=== PATIENT | female | born 1950 | race Caucasian/White ===

== ENCOUNTER 2020-11-19 07:26 | Day surgery (SDC) | payer MEDICARE ==
[~2020-11-19] VITALS: Ht 149.9 cm; Wt 49.0 kg
--- NOTE | 2020-11-19 08:07 | NUR ---
Ambulatory in Day Surgery History, Chart, Medications and Allergies reviewed before start of procedure. Pre-Op teaching done. Pt verbalizes understanding. Lungs clear. 02 3L/NC placed due to SOB.
--- NOTE | 2020-11-19 08:51 | NUR ---
11/19/20 0851 Yomaira Churchill 2% LIDOCAINE JELLY WITH 5 DROPS GABBIE-SYNEPHRINE 0.5% APPLIED TO BILATERAL NARES WITH COTTON TIP APPLICATOR. 1% LIDOCAINE SOLUTION SPRAYED TO OROPHARYNX USING ATOMIZATION DEVICE UNTIL GAG REFLEX GONE.
--- NOTE | 2020-11-19 11:18 | NUR ---
1101 RECEIVED CALL FROM RADIOLOGY, KOD[place] THAT DR MORGAN CONFIRMED CXR AND NO PNEUMOTHORAX NOTED. 1109 AMBULATED TO BATHROOM ON ROOM AIR. INCREASE SOB NOTED. RETURN TO BED AFTER RESTROOM, 02 REAPPLIED AND RECOVERS WELL.
--- NOTE | 2020-11-19 11:35 | NUR ---
PATIENT IS STABLE FOR DISCHARGE. PATIENT ARRIVED TODAY WITHOUT HER PORTABLE OXYGEN TANK. WILL DISCHARGE WITH O2 3L/NC UNTIL RIDE ARRIVES. [facility] WAS NOTIFIED FOR PICKUP.
--- NOTE | 2020-11-19 11:36 | NUR ---
Patient up to Ambulate independently. Gait steady. Discharge instructions reviewed with patient. Patient verbalizes understanding. Copy given to patient to take home. Discharged via wheelchair to private car for ride home.
[2020-12-23] MEDS ORDERED: ALBU90OI INH (15:36)
[2020-12-23] MEDS ORDERED: TRAM50 PO (15:38)
[2020-12-23] MEDS ORDERED: Bupropion HCl100 MG PO (15:38)
[2020-12-23] MEDS ORDERED: ANORO ELLIPTA1 EACH INH (15:39)
[2020-12-23] MEDS ORDERED: OXCA150 PO (15:39)
[2020-12-23] MEDS ORDERED: DUO-NEB NEB (15:40)
[2020-12-23] MEDS ORDERED: BREO ELLIPTA 21 EAC1 INH (15:41)
[2020-12-23] MEDS ORDERED: QUET200 PO (15:41)
[2020-12-23] MEDS ORDERED: LOTREL 10-40 M1 EACH PO (15:42)
== END 2020-11-19 11:44 | disposition home or self-care (01) ==
LOC: ORSCMMR 07:26 → ORD 08:30 → ORSCMMR 08:30
PROVIDERS: Internal Medicine Pulmonary Disease
PROC: 0BB48ZX Excision of Right Upper Lobe Bronchus, Via Natural or Artificial Opening Endoscopic, Diagnostic (ICD-10-PCS; principal; 2020-11-19 08:30)
DX: C34.11 Malignant neoplasm of upper lobe, right bronchus or lung (principal); Z87.891 Personal history of nicotine dependence; F31.9 Bipolar disorder, unspecified; R09.02 Hypoxemia; Z99.81 Dependence on supplemental oxygen; Z79.899 Other long term (current) drug therapy
CPT/HCPCS: 71045; 87070; 87077; 87186; 87205; 88305; A9270; J0171; J2001; J2250; J3010; J7120

== ENCOUNTER 2020-12-28 09:18 | Day surgery (SDC) | payer MEDICARE ==
[~2020-12-28] VITALS: Ht 149.9 cm; Wt 49.4 kg
[~2020-12-28 09:18] MED LIST: ALBU90OI INH; ANORO ELLIPTA1 EACH INH; BREO ELLIPTA 21 EAC1 INH; Bupropion HCl100 MG PO; DUO-NEB NEB; LOTREL 10-40 M1 EACH PO; OXCA150 PO; QUET200 PO; TRAM50 PO
--- NOTE | 2020-12-28 10:26 | NUR ---
Patient up to Ambulate independently. Gait steady. Surgical site prepped with 2% Chlorhexidine cloth wipe. Lungs clear T/O to Auscultation. Patient confirms NPO status and agrees with scheduled surgery. Pre-Op teaching done. Pt verbalizes understanding. Justo Paws warming gown applied. Patient States Post-Procedure ride home has been arranged.
--- NOTE | 2020-12-28 12:19 | NUR ---
ASSUMED CARE PT IS VISITING WITH STAFF DENIES PAIN OR NAUSEA . LAKISHA MALIN
--- NOTE | 2020-12-28 12:37 | NUR ---
REPORT TO SANTI CAN RATES PAIN 3/10 PLEASANT EATING CRACKERS AND DRINKING JUICE
--- NOTE | 2020-12-28 13:20 | NUR ---
PT TO STEP DOWN, UP TO VOID, STEADY ON FEET, GETS SOB EASILY WITH EXERTION. DRESSED W/ MIN ASSISTANCE AFTER BATHROOM. PT LAYING BACK DOWN, Discharge instructions reviewed with patient. Patient verbalizes understanding. Copy given to patient to take home. PT STATES MEDIPORT SITE BECOMING MORE TENDER, REQUESTING PAIN PILL. 1320- REPORT GIVEN TO JUAN JOSÉ JAUREGUI.
== END 2020-12-28 13:35 | disposition home or self-care (01) ==
LOC: ORSCMMR 09:18 → ORD 10:30 → ORSCMMR 10:30
PROVIDERS: Surgery
PROC: B544ZZA Ultrasonography of Left Jugular Veins, Guidance (ICD-10-PCS; principal; 2020-12-28 09:30)
PROC: 05HN33Z Insertion of Infusion Device into Left Internal Jugular Vein, Percutaneous Approach (ICD-10-PCS; principal; 2020-12-28 09:30)
DX: C34.11 Malignant neoplasm of upper lobe, right bronchus or lung (principal); I10 Essential (primary) hypertension; J44.9 Chronic obstructive pulmonary disease, unspecified; F17.210 Nicotine dependence, cigarettes, uncomplicated; Z79.899 Other long term (current) drug therapy
CPT/HCPCS: 77001; A9270; C1788; J1100; J1642; J2250; J2405; J2704; J3010; J7120

== ENCOUNTER 2021-02-04 10:08 | Emergency (ER) | payer MEDICARE ==
[~2021-02-04] VITALS: Ht 149.9 cm; Wt 46.7 kg
[2021-02-04 11:19] LABS: BASOPHILS ABSOLUTE AUTO 0.06 K/mm3 (0.00-0.23); BASOPHILS PERCENT AUTO 1 % (0-2); Hemoglobin 8.5 g/dL (11.5-16.0); LYMPHOCYTES ABSOLUTE AUTO 0.66 K/mm3 (0.84-5.20); LYMPHOCYTES PERCENT AUTO 8 % (21-46); MONOCYTES ABSOLUTE AUTO 0.71 K/mm3 (0.16-1.47); MONOCYTES PERCENT AUTO 8 % (4-13); Mean Corpuscular HGB 30.2 pg (26.0-34.0); Mean Corpuscular Volume 89 fL (80-100); Mean Platelet Volume 9.4 fL (9.1-12.4); Platelet Count 67 K/mm3 (150-400); RDW Coefficient Variation 18.3 % (11.7-14.2); RDW Standard Deviation 52.9 fL (35.1-46.3); Red Blood Cell Count 2.81 M/mm3 (3.80-5.20); White Blood Cell Count 8.41 K/mm3 (4.00-11.30)
[2021-02-04 11:22] LABS: EOSINOPHILS PERCENT AUTO 0 % (0-6); IMMATURE GRAN ABSOLUTE AUTO 0.41 K/mm3 (0.00-0.10); IMMATURE GRAN PERCENT AUTO 5 % (0-1); NEUTROPHILS ABSOLUTE AUTO 6.57 K/mm3 (1.96-9.15); NEUTROPHILS PERCENT AUTO 78 % (41-73)
[2021-02-04 11:32] LABS: Alanine Aminotransfer (ALT/SGP 12 U/L (12-78); Albumin, Blood 3.8 g/dL (3.4-5.0); Albumin/Globulin Ratio 1.2 (0.8-1.8); Alk Phos 118 U/L (50-136); Anion Gap 7 mmol/L (6-16); Aspartate Aminotrans (AST/SGOT 9 U/L (12-37); Bilirubin, Total 0.2 mg/dL (0.1-1.0); Blood Urea Nitrogen 12 mg/dL (8-24); Bun/Creatinine Ratio 14.4 (12.0-20.0); CO2, Blood 25 mmol/L (21-32); Calcium, Blood 8.6 mg/dL (8.5-10.1); Chloride, Blood 105 mmol/L (98-108); Creatinine, Blood 0.83 mg/dL (0.40-1.00); Globulin, Blood 3.2 g/dL (2.2-4.0); Glomerular Filtration Rate >60 (60-); Glucose, Blood 103 mg/dL (70-99); Potassium, Blood 3.1 mmol/L (3.5-5.5); Sodium, Blood 137 mmol/L (136-145)
[2021-02-04] MEDS ORDERED: Bactrim Ds Tab1 EACH PO (12:30)
== END 2021-02-04 13:06 | disposition home or self-care (01) ==
LOC: ER 10:08
PROVIDERS: Physician Assistant
DX: L52 Erythema nodosum (principal); Z79.899 Other long term (current) drug therapy; Z87.891 Personal history of nicotine dependence; Z88.0 Allergy status to penicillin
CPT/HCPCS: 36415; 80053; 85025; 99283; A9270

== ENCOUNTER 2021-04-18 21:58 | Emergency (ER) | payer MEDICARE ==
[~2021-04-18] VITALS: Ht 149.9 cm; Wt 45.4 kg
[~2021-04-18 21:58] MED LIST changes: +Bactrim Ds Tab1 EACH PO
[2021-04-18 23:36] LABS: BASOPHILS ABSOLUTE AUTO 0.01 K/mm3 (0.00-0.23); BASOPHILS PERCENT AUTO 0 % (0-2); EOSINOPHILS PERCENT AUTO 0 % (0-6); Hematocrit 31.2 % (33.0-51.0); Hemoglobin 10.9 g/dL (11.5-16.0); IMMATURE GRAN ABSOLUTE AUTO 0.01 K/mm3 (0.00-0.10); IMMATURE GRAN PERCENT AUTO 0 % (0-1); LYMPHOCYTES PERCENT AUTO 22 % (21-46); MONOCYTES ABSOLUTE AUTO 0.32 K/mm3 (0.16-1.47); MONOCYTES PERCENT AUTO 9 % (4-13); Mean Corpuscular HGB 32.3 pg (26.0-34.0); Mean Corpuscular HGB Conc 34.9 g/dL (31.5-36.5); Mean Corpuscular Volume 93 fL (80-100); Mean Platelet Volume 8.4 fL (9.1-12.4); NEUTROPHILS ABSOLUTE AUTO 2.49 K/mm3 (1.96-9.15); NEUTROPHILS PERCENT AUTO 69 % (41-73); Platelet Count 84 K/mm3 (150-400); RDW Coefficient Variation 12.7 % (11.7-14.2); Red Blood Cell Count 3.37 M/mm3 (3.80-5.20); White Blood Cell Count 3.63 K/mm3 (4.00-11.30)
[2021-04-18 23:49] LABS: Anion Gap 9 mmol/L (6-16); Blood Urea Nitrogen 21 mg/dL (8-24); Bun/Creatinine Ratio 27.5 (12.0-20.0); CO2, Blood 20 mmol/L (21-32); Calcium, Blood 9.1 mg/dL (8.5-10.1); Chloride, Blood 100 mmol/L (98-108); Creatinine, Blood 0.77 mg/dL (0.40-1.00); Glomerular Filtration Rate >60 (60-); Glucose, Blood 173 mg/dL (70-99); Potassium, Blood 3.9 mmol/L (3.5-5.5); Sodium, Blood 129 mmol/L (136-145); Troponin I <0.015 ng/mL (0.000-0.040)
[2021-04-19] MEDS ORDERED: Prednisone50 MG PO (06:03)
[2021-04-19] MEDS ORDERED: ALBU2.5V5 INH (06:03)
== END 2021-04-19 07:49 | disposition home or self-care (01) ==
LOC: ER 21:58
PROVIDERS: Student in an Organized Health Care Education/Training Program
DX: J44.1 Chronic obstructive pulmonary disease with (acute) exacerbation (principal); I10 Essential (primary) hypertension; Z87.891 Personal history of nicotine dependence; Z85.118 Personal history of other malignant neoplasm of bronchus and lung; Z99.81 Dependence on supplemental oxygen; Z88.0 Allergy status to penicillin; Z79.899 Other long term (current) drug therapy
CPT/HCPCS: 36415; 71045; 71260; 80048; 84484; 85025; 93005; 93010; 99285-25; J7030; Q9967

== ENCOUNTER → 2021-06-08 | Outpatient (CLI) | payer MEDICARE ==
[~2021-06-08] MED LIST changes: +ALBU2.5V5 INH; +Prednisone50 MG PO
== END | disposition home or self-care (01) ==
LOC: LAB SHORT 15:14
DX: L08.9 Local infection of the skin and subcutaneous tissue, unspecified (principal); L98.9 Disorder of the skin and subcutaneous tissue, unspecified
CPT/HCPCS: 88305; 88312

== ENCOUNTER → 2021-06-22 | Outpatient (CLI) | payer MEDICARE ==
[2021-06-23 09:59] LABS: C DIFFICILE DNA NEGATIVE (Negative)
== END | disposition home or self-care (01) ==
LOC: LAB SHORT 12:05
PROVIDERS: Internal Medicine Hematology & Oncology
DX: C34.90 Malignant neoplasm of unspecified part of unspecified bronchus or lung (principal); R19.7 Diarrhea, unspecified
CPT/HCPCS: 87493

== ENCOUNTER 2021-07-14 10:48 | Emergency (ER) | payer MEDICARE ==
[~2021-07-14] VITALS: Ht 149.9 cm; Wt 42.2 kg
[2021-07-14 11:53] LABS: Hematocrit 29.2 % (33.0-51.0); Hemoglobin 9.7 g/dL (11.5-16.0); Mean Corpuscular HGB 31.5 pg (26.0-34.0); Mean Corpuscular HGB Conc 33.2 g/dL (31.5-36.5); Mean Corpuscular Volume 95 fL (80-100); Mean Platelet Volume 9.2 fL (9.1-12.4); Platelet Count 140 K/mm3 (150-400); RDW Coefficient Variation 16.1 % (11.7-14.2); RDW Standard Deviation 56.3 fL (35.1-46.3); Red Blood Cell Count 3.08 M/mm3 (3.80-5.20); White Blood Cell Count 5.08 K/mm3 (4.00-11.30)
[2021-07-14 12:13] LABS: Alanine Aminotransfer (ALT/SGP 8 U/L (12-78); Albumin, Blood 1.5 g/dL (3.4-5.0); Albumin/Globulin Ratio 0.5 (0.8-1.8); Alk Phos 50 U/L (50-136); Anion Gap 7 mmol/L (6-16); Aspartate Aminotrans (AST/SGOT 14 U/L (12-37); Bilirubin, Total 0.3 mg/dL (0.1-1.0); Blood Urea Nitrogen 35 mg/dL (8-24); Bun/Creatinine Ratio 43.1 (12.0-20.0); CO2, Blood 21 mmol/L (21-32); Calcium, Blood 7.9 mg/dL (8.5-10.1); Chloride, Blood 106 mmol/L (98-108); Creatinine, Blood 0.81 mg/dL (0.40-1.00); Globulin, Blood 3.1 g/dL (2.2-4.0); Glomerular Filtration Rate >60 (60-); Glucose, Blood 106 mg/dL (70-99); Potassium, Blood 3.6 mmol/L (3.5-5.5); Sodium, Blood 134 mmol/L (136-145); Total Protein, Blood 4.6 g/dL (6.4-8.2); Troponin I <0.015 ng/mL (0.000-0.040)
[2021-07-14 12:17] LABS: BAND PERCENT MAN 50 % (0-8); BASOPHILS PERCENT MAN 0 % (0-2); EOSINOPHILS PERCENT MAN 0 % (0-6); LYMPHOCYTES PERCENT MAN 8 % (21-46); METAMYELOCYTE ABSOLUTE MAN 0.05 K/mm3 (0.00-0.00); METAMYELOCYTE PERCENT MAN 1 % (0-0); MONOCYTES PERCENT MAN 10 % (4-13); NEUTROPHILS ABSOLUTE MAN 4.11 K/mm3 (1.96-9.15); SEG NEUTROPHILS PERCENT MAN 31 % (41-73); TOTAL CELLS COUNTED 100
[2021-07-14 16:05] LABS: Source, Urine Clean Catch
[2021-07-14 16:08] LABS: Appearance, Urine Clear (Clear); Bilirubin, Urine Neg (Neg); Blood, Urine Neg (Neg); Color, Urine Yellow (P-Yellow); Glucose Qualitative, Urine Neg (Neg); Ketones, Urine 1+ (Neg); Leukocyte Esterase, Urine Neg (Neg); Nitrite, Urine Neg (Neg); Protein, Urine 2+ (Neg); Specific Gravity, Urine 1.015 (1.003-1.022); Urobilinogen, Urine NORM (Normal)
[2021-07-14 16:38] LABS: Bacteria Mod /hpf; Red Blood Cells, Urine Rare /hpf (0-2); Squamous Epithelial Cells Rare /hpf (Few); White Blood Cells, Urine Rare /hpf (0-5)
[2021-07-14] MEDS ORDERED: ONDA4ODT MM (16:41)
[2021-07-14] MEDS ORDERED: Loperamide2 MG PO (16:41)
== END 2021-07-14 17:33 | disposition home or self-care (01) ==
LOC: ER 10:48
PROVIDERS: Emergency Medicine
DX: K52.9 Noninfective gastroenteritis and colitis, unspecified (principal); E86.0 Dehydration; I95.9 Hypotension, unspecified; J44.9 Chronic obstructive pulmonary disease, unspecified; I10 Essential (primary) hypertension; Z87.891 Personal history of nicotine dependence; Z88.0 Allergy status to penicillin; Z79.899 Other long term (current) drug therapy
CPT/HCPCS: 51701; 71045; 71260; 74177; 80053; 81001; 83690; 84484; 85025; 87086; 93005; 93010; 96374; 96375; 99285-25; A9270; J2405; J3010; J7030; Q9967

== ENCOUNTER 2021-07-16 11:42 | Inpatient (IN) | payer MEDICARE ==
[~2021-07-16] VITALS: Ht 144.8 cm; Wt 63.2 kg
[~2021-07-16 11:42] MED LIST changes: -DUO-NEB NEB; +IPRAT-ALBUT 0.5-3 ML INH; +Loperamide2 MG PO; +ONDA4ODT MM; -QUET200 PO; +QUET300 PO
[2021-07-16 13:13] LABS: Influenza A, PCR NEGATIVE (NEGATIVE); Influenza B, PCR NEGATIVE (NEGATIVE); Resp Syncytial Virus, PCR NEGATIVE (NEGATIVE); SARS-Cov-2 (COVID-19) PCR, MMC NEGATIVE (NEGATIVE)
[2021-07-16 13:30] LABS: Hematocrit 24.9 % (33.0-51.0); Hemoglobin 8.2 g/dL (11.5-16.0); Mean Corpuscular HGB 31.7 pg (26.0-34.0); Mean Corpuscular HGB Conc 32.9 g/dL (31.5-36.5); Mean Corpuscular Volume 96 fL (80-100); Mean Platelet Volume 9.3 fL (9.1-12.4); Platelet Count 113 K/mm3 (150-400); RDW Standard Deviation 56.6 fL (35.1-46.3); Red Blood Cell Count 2.59 M/mm3 (3.80-5.20); White Blood Cell Count 4.41 K/mm3 (4.00-11.30)
[2021-07-16 13:53] LABS: Troponin I <0.015 ng/mL (0.000-0.040)
[2021-07-16 13:55] LABS: BAND PERCENT MAN 21 % (0-8); BASOPHILS PERCENT MAN 0 % (0-2); EOSINOPHILS ABSOLUTE MAN 0.04 K/mm3 (0.00-0.68); EOSINOPHILS PERCENT MAN 1 % (0-6); METAMYELOCYTE ABSOLUTE MAN 0.04 K/mm3 (0.00-0.00); METAMYELOCYTE PERCENT MAN 1 % (0-0); MONOCYTES ABSOLUTE MAN 0.13 K/mm3 (0.16-1.47); MONOCYTES PERCENT MAN 3 % (4-13); NEUTROPHILS ABSOLUTE MAN 4.18 K/mm3 (1.96-9.15); SEG NEUTROPHILS PERCENT MAN 74 % (41-73); TOTAL CELLS COUNTED 100
[2021-07-16 13:57] LABS: Alanine Aminotransfer (ALT/SGP 8 U/L (12-78); Albumin, Blood 1.2 g/dL (3.4-5.0); Albumin/Globulin Ratio 0.4 (0.8-1.8); Alk Phos 48 U/L (50-136); Anion Gap 9 mmol/L (6-16); Aspartate Aminotrans (AST/SGOT 10 U/L (12-37); Bilirubin, Total 0.2 mg/dL (0.1-1.0); Blood Urea Nitrogen 41 mg/dL (8-24); Bun/Creatinine Ratio 31.1 (12.0-20.0); CO2, Blood 19 mmol/L (21-32); Chloride, Blood 109 mmol/L (98-108); Creatinine, Blood 1.32 mg/dL (0.40-1.00); Globulin, Blood 2.8 g/dL (2.2-4.0); Glomerular Filtration Rate 40 (60-); Glucose, Blood 111 mg/dL (70-99); Potassium, Blood 2.4 mmol/L (3.5-5.5); Sodium, Blood 137 mmol/L (136-145)
[2021-07-16 14:05] LABS: Source, Urine Clean Catch
[2021-07-16 14:09] LABS: Appearance, Urine Clear (Clear); Blood, Urine Neg (Neg); Color, Urine Yellow (P-Yellow); Glucose Qualitative, Urine Neg (Neg); Ketones, Urine Neg (Neg); Leukocyte Esterase, Urine 1+ (Neg); Nitrite, Urine Neg (Neg); Protein, Urine 2+ (Neg); Specific Gravity, Urine 1.015 (1.003-1.022); Urobilinogen, Urine NORM (Normal)
[2021-07-16 14:18] LABS: Bilirubin, Urine 1+ (Neg)
[2021-07-16 14:21] LABS: Bacteria Many /hpf; Red Blood Cells, Urine 0-2 /hpf (0-2); Squamous Epithelial Cells Few /hpf (Few)
[2021-07-16 14:26] LABS: C DIFFICILE DNA NEGATIVE (Negative)
--- NOTE | 2021-07-16 21:34 | NUR ---
ASSUMED CARE AT 1900 PT ARRIVED TO ICU 6 AT 1845 AND THIS RN ASSUMED CARE AT 1900. PT IS A&O X4 AND ABLE TO MAKE HER NEEDS KNOWN; PT IS VERY WEAK AND LETHARGIC BUT CAN HOLD A CONVERSATION. C/O PAIN IN ABD, PAIN IS SHARP AND "COMES AND GOES" AND OCCATIONALLY "STICKS AROUND"; PAIN RATING 5/10; PRN FENTANYL AVAILABLE, GIVEN, AND HELPFUL; PAIN NOW 3/10. SPO2 >96% ON RA; WEAK PRODUCTIVE COUGH NOTED. HR 80-90'S. SBP 90'S; LEVOPHED TITRATED UP TO 14MCG/MIN; MAP >65. HYPOACTIVE BT; ABD TENDER TO TOUCH; NO BM SINCE ADMIT TO ICU. SOME URINARY RETENTION NOTED, ABLE TO USE BEDPAN. SEE ADMISSION ASSESSMENT FOR FULL ASSESSMENT. DR FLEMING CALLED REGARDING CLARIFICATION ON FLUID ORDER, 1000ML BAG OF NS AT 100ML/HR D/C'D DUE TO SECOND ORDER OF 1000ML BAG OF NS WITH 20MEQ OF POTASSIUM ALSO INFUSING AT 100ML/HR. PT REQUESTED THAT AN ALBUTEROL INHALER BE AVAILABLE, DR FLEMING PROVIDED ORDERS FOR PRN ALBUTEROL.
--- NOTE | 2021-07-16 21:57 | NUR ---
UPDATE PT POTASSIUM LAB RESULTED AT 2.[address] FLEMING CALLED AND PROVIDED ORDERS TO ADD ON A MAG AND CREATININE LAB TO THE 2034 LAB DRAW AND CALL WITH THE RESULTS; TO GIVE 60MEQ KCL IV AND 40MEQ OF KCL PO; A POTASSIUM LAB IS TO BE DRAWN AFTER INFUSION.
[2021-07-16 22:05] LABS: Creatinine, Blood 0.56 mg/dL (0.40-1.00); Magnesium, Blood 1.2 mg/dL (1.6-2.4)
--- NOTE | 2021-07-16 22:44 | NUR ---
UPDATE CALLED DR FLEMING BACK REGARDING MAG AND CREATININE LAB LEVELS. NEW ORDERS PROVIDED TO GIVE 2 GRAMS OF MAGNISIUM SULFATE AND AN ADDITIONAL 40MEQ OF KCL PO.
--- NOTE | 2021-07-17 03:26 | NUR ---
UPDATE AT 0200 PT C/O 03/26 PAIN THAT WAS NOT RELIEVED BY 25MCG PRN FENTANYL, PAIN CONT IN ABD TO BE SHARP AND "COMES AND GOES" BUT WILL OCCATIONALLY "HOLD ON". PT IS NOW GUARDING ABD TOO. DR YANEZ NOTIFIED AND PROVIDED NEW ORDERS FOR 1-2MG DILAUDID PRN Q6HR.
[2021-07-17 05:43] LABS: Hematocrit 31.5 % (33.0-51.0); Hemoglobin 10.5 g/dL (11.5-16.0); Mean Corpuscular HGB 31.5 pg (26.0-34.0); Mean Corpuscular HGB Conc 33.3 g/dL (31.5-36.5); Mean Corpuscular Volume 95 fL (80-100); Mean Platelet Volume 8.9 fL (9.1-12.4); Platelet Count 162 K/mm3 (150-400); Red Blood Cell Count 3.33 M/mm3 (3.80-5.20)
[2021-07-17 06:18] LABS: Anion Gap 6 mmol/L (6-16); Blood Urea Nitrogen 24 mg/dL (8-24); Bun/Creatinine Ratio 37.8 (12.0-20.0); CO2, Blood 15 mmol/L (21-32); Calcium, Blood 7.6 mg/dL (8.5-10.1); Chloride, Blood 116 mmol/L (98-108); Creatinine, Blood 0.64 mg/dL (0.40-1.00); Glomerular Filtration Rate >60 (60-); Glucose, Blood 124 mg/dL (70-99); Sodium, Blood 137 mmol/L (136-145)
[2021-07-17 06:22] LABS: Potassium, Blood 4.6 mmol/L (3.5-5.5)
[2021-07-17 06:26] LABS: BAND PERCENT MAN 14 % (0-8); BASOPHILS PERCENT MAN 0 % (0-2); EOSINOPHILS PERCENT MAN 0 % (0-6); LYMPHOCYTES ABSOLUTE MAN 0.31 K/mm3 (0.84-5.20); LYMPHOCYTES PERCENT MAN 3 % (21-46); MONOCYTES PERCENT MAN 0 % (4-13); NEUTROPHILS ABSOLUTE MAN 10.18 K/mm3 (1.96-9.15); SEG NEUTROPHILS PERCENT MAN 83 % (41-73); TOTAL CELLS COUNTED 100
--- NOTE | 2021-07-17 06:32 | NUR ---
END OF SHIFT SUMMARY PT DID NOT SLEEP ALL SHIFT. PT IS A&O X4 BUT WEAK AND LETHARGIC. SPO2 >94% ON RA, PRN ALBUTERAL HELPFUL AFTER EXERTION. HR 80-90'S. SBP 90-110; LEVOPHED INFUSING AT 16MCG/MIN. ABD MORE FIRM THAN PREVIOUSLY; ZOFRAN GIVEN X2; DIARRHEA STARTED AGAIN; DILAUDID GIVEN X1 AND HELPFUL WITH ABD PAIN. PT VOIDING Q2HR BOTH LIQUID STOOL AND URINE. WILL REPORT TO AM RN WHEN AVAILABLE.
--- NOTE | 2021-07-17 11:33 | NUR ---
Met with pt to review her needs and symptoms. Pt is very depressed and states she is having anger. She is sad that she was so dilligent with her care and her immunosupressive therapy in not tolerable. She is having more pressure and bloating in abdomen. She denies headaches or blurred vision. No appetite, increased weakness and a fall. we discussed a plan of contacting her oncologist tomorrow for support in making a plan and decision making. She did not want to talk about hospice at first but was able to have a gentle and careful introduction to how much support they would give her. Advised her that she can talk to them and make a decision after. I also advied her that if she signs up for hospice and it is not working for her she can cancel the service. Renforced she has some choice. She is feeling out of control. She is no children. She moved up here to be with friends. She is having anticipatory grief and she is very fatigued. Review of symptoms and suggested medication with hospitalist. Will get chaplian for pt.
--- NOTE | 2021-07-17 19:14 | NUR ---
Ms. Benitez is resting in bed. She is alert and oriented, though complains of abdominal pain, diarrhea, and nausea. Ms. Benitez is on room air and is satting 96%. She has a strong, congested sounding cough. IV antibiotics have been administered as prescribed. Ms. Benitez has a poor appetite, eating small portions. She has had persistent diarrhea throughout the day and has been prescribed imodium and simethicone for abdominal symptom relief. Dilaudid and fentanyl have also been administered for pain management. Chest port and peripheral IV access lines are intact. Levophed drip has been titrated down to 6mcgs. NS with 20KCL are still infusing at 100ccs/hour
--- NOTE | 2021-07-17 21:49 | NUR ---
ASSUMED CARE AT 1900 PT LAYING IN BED WHEN ARRIVED ONTO SHIFT. PT IS A/O X4 AND ABLE TO MAKE HER NEEDS KNOWN BUT IS VERY WEAK, LETHARGIC, AND FRAGILE.SPO2 >90% ON RA; RT PROVIDED TREATMENT FOR WHEEZINESS. HR 100'S. SBP 100'S; LEVOPHED INFUSING AT 6MCG/MIN. ABD FIRM AND PAINFUL TO TOUCH; C/O NAUSEA; LIQUID STOOL FREQUENTLY Q1HR; PRN DILAUDID GIVEN FOR PAIN; WILL PROVIDE OTHER PRN'S AVAILABLE FOR NAUSEA, GAS, AND DIARRHEA. PT APPEARS EXHAUSTED, MORE SCARED AND ANXIOUS THAN PREVIOUS DAY MAKING STATEMENTS THAT SHE "DOESN'T WANT TO " FOLLOWED BY A CONVERSTAION ABOUT HOW SHE NEEDS TO UPDATE HER WILL. NS WITH 20MEQ KCL INFUSING AT 100ML/HR. SEE SHIFT ASSESSMENT FOR FULL ASSESSMENT.
[2021-07-18 05:09] LABS: Hematocrit 30.3 % (33.0-51.0); Mean Corpuscular HGB 31.3 pg (26.0-34.0); Mean Corpuscular Volume 95 fL (80-100); Mean Platelet Volume 8.8 fL (9.1-12.4); Platelet Count 155 K/mm3 (150-400); RDW Coefficient Variation 16.1 % (11.7-14.2); RDW Standard Deviation 56.5 fL (35.1-46.3); Red Blood Cell Count 3.19 M/mm3 (3.80-5.20); White Blood Cell Count 10.16 K/mm3 (4.00-11.30)
[2021-07-18 05:41] LABS: Albumin, Blood 1.5 g/dL (3.4-5.0); Anion Gap 5 mmol/L (6-16); Blood Urea Nitrogen 14 mg/dL (8-24); Bun/Creatinine Ratio 24.3 (12.0-20.0); CO2, Blood 17 mmol/L (21-32); Calcium, Blood 8.1 mg/dL (8.5-10.1); Chloride, Blood 117 mmol/L (98-108); Creatinine, Blood 0.58 mg/dL (0.40-1.00); Glomerular Filtration Rate >60 (60-); Glucose, Blood 113 mg/dL (70-99); Phosphorus, Blood 1.5 mg/dL (2.5-4.9); Potassium, Blood 3.5 mmol/L (3.5-5.5); Sodium, Blood 139 mmol/L (136-145)
[2021-07-18 06:14] LABS: BAND PERCENT MAN 35 % (0-8); BASOPHILS PERCENT MAN 0 % (0-2); EOSINOPHILS PERCENT MAN 0 % (0-6); LYMPHOCYTES PERCENT MAN 2 % (21-46); MONOCYTES ABSOLUTE MAN 0.71 K/mm3 (0.16-1.47); MONOCYTES PERCENT MAN 7 % (4-13); MYELOCYTE PERCENT MAN 5 % (0-0); NEUTROPHILS ABSOLUTE MAN 8.73 K/mm3 (1.96-9.15); SEG NEUTROPHILS PERCENT MAN 51 % (41-73); TOTAL CELLS COUNTED 100
--- NOTE | 2021-07-18 07:46 | NUR ---
END OF SHIFT SUMMARY PT DID NOT SLEEP LAST NIGHT. PT IS ALERT/ORIENTED X4 BUT IS WEAK, LETHARGIC, AND BECOMING REPETATIVE WITH INFORMATION. SPO2 >92% ON RA. HR 100-110. SBP 100-120, LEVOPHED TITRATED DOWN TO 2MCG/MIN. ABD CONT TO BE PAINFUL AND FIRM; >12 LIQUID BM THIS SHIFT, INCONT AT TIMES FOLLOWED BY NEEDING THE BED AGUAYO; ZOFRAN GIVEN FOR NAUSEA; DILAUDID GIVEN FOR PAIN WITH MAX PAIN RATING 7/10; AFTER DILAUDID 3/10; DILAUDID SEEMED TO WEAR OFF 4-5HRS AFTER BEING GIVEN. OUTPUT IS MIXTURE OF LIQUID STOOL AND URINE. REPORT GIVEN TO YESENIA Sánchez
--- NOTE | 2021-07-18 16:07 | NUR ---
Case conference with IDT team in ICU this am. EMR reviewed including today's oncology note. Pal [facility] will remain available and visit for support as schedule allows.
--- NOTE | 2021-07-18 18:00 | NUR ---
AOx4, complains of 5/10 abdominal pain, dilaudid 1mg x2 given with some relief, nonverbal indicators of pain include facial grimacing/guarding, Pt has difficulty sleeping, no sleep last 24 hours, +1 weak pulses throughout, SR 80s, levo titrated off this morning MAP>65/SBP>90 rest of shift, Pt at times complains of some SOB, lungs coarse with some exp wheeze RUL in AM, Pt sat WNL, abdomen mildly firm with audible bowels, frequent loose green stools with urine incontinent mixed in brief, imodium given as well as simethicone, Pt complains of nausea, given 4mg zofran x2 with some effect, kcl 20meq/1000ml infusing, phos replaced with 10mmol/250, Pt oncologist in house visit, s/s secondary to immunotherapy previously given in may, order for solu-medrol to reduce incidence of diarrhea/enterocolitis, BMs 5 this shift, frequency of BMs decreased compared to previous shift with steroid administration, new 20g IV to HANNAH.
--- NOTE | 2021-07-18 21:14 | NUR ---
ASSUMED CARE OF PT AT 1900, REPORT RECEIVED FROM YESENIA CAN. PT RESTING IN BED, ALERT AND ORIENTED, ABLE TO MAKE NEEDS KNOWN. NS WITH 20 MEQ KCL INFUSING AT 100 ML/HR. LUNGS CLEAR, PT WITH OCCASIONAL PRODUCTIVE COUGH. PT COMPLAINING OF 5/10 ABDOMENAL PAIN, PRN FENTANYL GIVEN REDUCING PAIN TO 3/10. PT ABLE TO MOVE ALL EXTREMITIES, WEAKNESS NOTED T/O. FAINT PULSES PALPABLE IN ALL EXTREMITIES, CAP REFILL WNL. CURRENTLY ON RA, SPO2 >90%. HR 100'S, SBP 120'S WITH LEVOPHED ON STANDBY SINCE THIS AM. PT WITH FREQUENT DIARRHEA, BRIEFS IN PLACE. PT ENCOURAGED TO SLEEP, CALL LIGHT WITHIN REACH.
[2021-07-19 04:18] LABS: Hemoglobin 10.1 g/dL (11.5-16.0); LYMPHOCYTES ABSOLUTE AUTO 0.34 K/mm3 (0.84-5.20); LYMPHOCYTES PERCENT AUTO 5 % (21-46); MONOCYTES ABSOLUTE AUTO 0.16 K/mm3 (0.16-1.47); MONOCYTES PERCENT AUTO 2 % (4-13); Mean Corpuscular HGB Conc 32.6 g/dL (31.5-36.5); Mean Corpuscular Volume 95 fL (80-100); Mean Platelet Volume 9.1 fL (9.1-12.4); Platelet Count 142 K/mm3 (150-400); RDW Coefficient Variation 16.2 % (11.7-14.2); RDW Standard Deviation 57.1 fL (35.1-46.3); Red Blood Cell Count 3.26 M/mm3 (3.80-5.20); White Blood Cell Count 6.95 K/mm3 (4.00-11.30)
[2021-07-19 04:19] LABS: BASOPHILS PERCENT AUTO 0 % (0-2); EOSINOPHILS PERCENT AUTO 0 % (0-6); IMMATURE GRAN ABSOLUTE AUTO 0.12 K/mm3 (0.00-0.10); IMMATURE GRAN PERCENT AUTO 2 % (0-1); NEUTROPHILS ABSOLUTE AUTO 6.33 K/mm3 (1.96-9.15); NEUTROPHILS PERCENT AUTO 91 % (41-73)
[2021-07-19 04:41] LABS: Albumin, Blood 1.5 g/dL (3.4-5.0); Anion Gap 10 mmol/L (6-16); Blood Urea Nitrogen 16 mg/dL (8-24); Bun/Creatinine Ratio 26.7 (12.0-20.0); CO2, Blood 14 mmol/L (21-32); Calcium, Blood 7.4 mg/dL (8.5-10.1); Chloride, Blood 116 mmol/L (98-108); Glomerular Filtration Rate >60 (60-); Glucose, Blood 113 mg/dL (70-99); Phosphorus, Blood 2.1 mg/dL (2.5-4.9); Potassium, Blood 3.8 mmol/L (3.5-5.5); Sodium, Blood 140 mmol/L (136-145)
[2021-07-19 05:52] LABS: BAND PERCENT MAN 10 % (0-8); BASOPHILS PERCENT MAN 0 % (0-2); EOSINOPHILS PERCENT MAN 0 % (0-6); LYMPHOCYTES ABSOLUTE MAN 0.48 K/mm3 (0.84-5.20); LYMPHOCYTES PERCENT MAN 7 % (21-46); METAMYELOCYTE ABSOLUTE MAN 0.06 K/mm3 (0.00-0.00); METAMYELOCYTE PERCENT MAN 1 % (0-0); MONOCYTES ABSOLUTE MAN 0.06 K/mm3 (0.16-1.47); MONOCYTES PERCENT MAN 1 % (4-13); NEUTROPHILS ABSOLUTE MAN 6.32 K/mm3 (1.96-9.15); SEG NEUTROPHILS PERCENT MAN 81 % (41-73); TOTAL CELLS COUNTED 100
--- NOTE | 2021-07-19 06:35 | NUR ---
SHIFT SUMMARY PT REMAINS A&O X4 T/O SHIFT. COMPLAINTS OF ABD PAIN 5/10, PRN FENTANYL AND DILAUDID GIVEN PER EMAR. CONTINUES HAVING FREQUENT LOOSE GREEN BOWEL MOVEMENTS, X11 THIS SHIFT. PT ABLE TO MOVE ALL EXTREMITIES, WEAK X4. ABD WITH MILD DISTENTION, FIRM AND TENDER TO PALPATE. NS WITH 20 KCL INFUSING AT 100 ML/HR. PT WITH CALL LIGHT WITHIN REACH, ABLE TO MAKE NEEDS KNOWN.
--- NOTE | 2021-07-19 09:00 | NUR ---
ASSUMED CARE AT 0700. PATIENT A&OX4. MAKES NEEDS KNOWN. STILL HAVING FREQUENT LOOSE GREEN STOOLS. REPORTS ABD PAIN IS TOLERABLE AT THIS TIME. ABDOMEN MODERATLY DISTENDED AND TENDER ON PALPATION. BP STABLE. HR 100-115. FLUIDS STOPPED PER DR. CELESTIN. POOR APPETITE BUT TAKES FLUIDS WELL. ORDERS TO TRANSFER TO [facility] W/ TELE PER DR CELESTIN.
--- NOTE | 2021-07-19 17:15 | NUR ---
PATIENT COMPLAIED OF PAIN IN LEFT CHEST AREA AFTER TRANSFER FROM COMMODE TO CHAIR. PAIN SUBSIDED AFTER A FEW MINUTES OF REST. DR. CELESTIN NOTIFIED. SEE ORDERS.
--- NOTE | 2021-07-19 18:58 | NUR ---
END OF SHIFT SUMMARY PT STILL HAVING FREQUENT (QH) LIQUID GREEN BMS. PT GOT UP TO CHAIR AND TO COMMODE TODAY WITH 1 PERSON ASSIST. WEAK BUT TOLERATED WELL. COMPLAINED OF CHEST PAIN WITH EXCERTION, SEE PREVIOUS NOTE AND ORDERS. TREATED ABDOMINAL PAIN WITH PRN NORCO. HER PAIN APPEARS WELL CONTROLLED WITH THIS. MAP STABLE WITHOUT PRESSORS TODAY.
--- NOTE | 2021-07-19 21:13 | NUR ---
ASSUMPTION OF CARE PT IS ALERT AND ORIENTED. PT RECEIVING NS TKO VIA MEDIPORT. PT C/O ABDOMINAL PAIN BUT PREVIOUS SHIFT GAVE MEDICATION THAT GAVE SOME RELIEF. PT HAS DIARRHEA AND REQUIRES BEDPAN OFTEN. STOOL IS WATERY AND GREEN. SEE SHIFT ASSESSMENT.
[2021-07-20 04:24] LABS: BASOPHILS ABSOLUTE AUTO 0.09 K/mm3 (0.00-0.23); BASOPHILS PERCENT AUTO 1 % (0-2); Hematocrit 31.7 % (33.0-51.0); Hemoglobin 10.5 g/dL (11.5-16.0); LYMPHOCYTES ABSOLUTE AUTO 0.48 K/mm3 (0.84-5.20); LYMPHOCYTES PERCENT AUTO 8 % (21-46); MONOCYTES ABSOLUTE AUTO 0.39 K/mm3 (0.16-1.47); MONOCYTES PERCENT AUTO 6 % (4-13); Mean Corpuscular HGB Conc 33.1 g/dL (31.5-36.5); Mean Corpuscular Volume 94 fL (80-100); Mean Platelet Volume 9.2 fL (9.1-12.4); Platelet Count 131 K/mm3 (150-400); RDW Coefficient Variation 16.2 % (11.7-14.2); RDW Standard Deviation 56.7 fL (35.1-46.3); Red Blood Cell Count 3.39 M/mm3 (3.80-5.20); White Blood Cell Count 6.33 K/mm3 (4.00-11.30)
[2021-07-20 04:26] LABS: EOSINOPHILS PERCENT AUTO 0 % (0-6); IMMATURE GRAN ABSOLUTE AUTO 0.32 K/mm3 (0.00-0.10); IMMATURE GRAN PERCENT AUTO 5 % (0-1); NEUTROPHILS ABSOLUTE AUTO 5.05 K/mm3 (1.96-9.15); NEUTROPHILS PERCENT AUTO 80 % (41-73)
[2021-07-20 04:39] LABS: Albumin, Blood 1.6 g/dL (3.4-5.0); Anion Gap 9 mmol/L (6-16); Blood Urea Nitrogen 22 mg/dL (8-24); Bun/Creatinine Ratio 31.5 (12.0-20.0); CO2, Blood 16 mmol/L (21-32); Calcium, Blood 7.8 mg/dL (8.5-10.1); Chloride, Blood 119 mmol/L (98-108); Glomerular Filtration Rate >60 (60-); Glucose, Blood 154 mg/dL (70-99); Phosphorus, Blood 1.8 mg/dL (2.5-4.9); Potassium, Blood 2.9 mmol/L (3.5-5.5); Sodium, Blood 144 mmol/L (136-145)
--- NOTE | 2021-07-20 04:45 | NUR ---
UPDATE PT CALLS MEDICAL WRITER LIGHT. UPON ENTERING THE ROOM, PT IS VERY ANXIOUS AND STS "I NEED ANSWERS ABOUT WHY MY POOP IS GREEN". SHE ALSO STS "THEY HAVE RAN TESTS AND CAN'T SEEM TO FIGURE OUT WHAT IS GOING ON. WHAT ARE THEY GOING TO DO NOW TO FIGURE THIS OUT?". JACQUELINE CAN AND I EXPLAINED WHAT TESTS HAVE BEEN RAN AND POSSIBLE CAUSES OF HER CONDITION PER DOCTOR'S DICTATIONS. PT ALSO STS SHE TAKES 300MG SEROQUEL AT NIGHT AND ALSO TAKES TRILEPTAL FOR "ABSENT SEIZURES". PER EMAR, PT HAS NOT TAKEN EITHER OF THESE MEDICATIONS SINCE ADMISSION. PT ALSO EXPRESSES HER PAIN IS UNBEARABLE AND RATES IT A "5". MEDICATED PER EMAR WITH LITTLE RELIEF. THROUGH CONVERSATION PT BECOMES CALM AND STARTS DISCUSSING HER CHILDHOOD AND HER LIFE. PT CURRENTLY SLEEPING.
[2021-07-20 05:18] LABS: BAND PERCENT MAN 12 % (0-8); BASOPHILS PERCENT MAN 0 % (0-2); EOSINOPHILS ABSOLUTE MAN 0.06 K/mm3 (0.00-0.68); EOSINOPHILS PERCENT MAN 1 % (0-6); LYMPHOCYTES PERCENT MAN 8 % (21-46); METAMYELOCYTE ABSOLUTE MAN 0.18 K/mm3 (0.00-0.00); METAMYELOCYTE PERCENT MAN 3 % (0-0); MONOCYTES ABSOLUTE MAN 0.25 K/mm3 (0.16-1.47); MONOCYTES PERCENT MAN 4 % (4-13); NEUTROPHILS ABSOLUTE MAN 5.31 K/mm3 (1.96-9.15); SEG NEUTROPHILS PERCENT MAN 72 % (41-73); TOTAL CELLS COUNTED 100
--- NOTE | 2021-07-20 06:31 | NUR ---
SHIFT SUMMARY PT REMAINS ALERT AND ORIENTED. PT SLEPT A FEW HOURS BUT WAS AWAKE MOST OF THE NIGHT. PT CONTINUES TO HAVE BLACK/GREEN DIARRHEA, USES BEDPAN. AM LABS SHOWED LOW POTASSIUM AND PHOSPHORUS, NEW ORDERS PLACED FROM HOSPITALIST. WILL REPORT TO ONCOMING RN.
--- NOTE | 2021-07-20 13:33 | NUR ---
A&0X4. PT STATES SHE IS IRRITABLE THIS MORNING. COMPLAINS OF ABDOMINAL PAIN, RELEIVED WITH PRN FENTANYL, REFUSES PO PAIN MEDICATION. GOT UP TO CHAIR WITH PT. LIQUID BMS EVERY 2-3 HOURS. STOOL SAMPLE SENT PER ORDER. BP WNL. TAKING PO FLUIDS WELL.
[2021-07-20 13:35] LABS: C DIFFICILE DNA Duplicate (Negative)
--- NOTE | 2021-07-20 19:41 | NUR ---
SHIFT SUMMARY PAIN CONTROL BECAME INADEQUATE FOR PATIENT THROUGHOUT DAY. PT STARTED ON AUTOMATED ACCESS SYSTEMS TECHNICIAN PER ORDER. PAIN IS MORE CONTROLLED WITH AUTOMATED ACCESS SYSTEMS TECHNICIAN. BP REMAINED WNL TODAY. POOR FOOD INTAKE, PATIENT STATES THIS IS NORMAL FOR HER. STILL TAKING ADEQUATE PO FLIUDS. GOT UP TO CHAIR WITH PT. FREQUENCY OF BOWEL MOVEMENTS HAVE IMPROVED THROUGHOUT THE AFTERNOON. URINATING IN BED AGUAYO.
--- NOTE | 2021-07-20 19:48 | NUR ---
ASSUMED CARE REPORT RECEIVED FROM DAY SHIFT RN. PT IN BED, ALERT AND ORIENTED X4. PT NSR ON MONITOR. PT ON DILAUDID VICE PROVOST, VICE PROVOST CLEARED BY TWO RNS. NO DISTRESS NOTED. SEE SHIFT ASSESSMENT. WILL CONTINUE TO MONITOR.
--- NOTE | 2021-07-20 22:33 | NUR ---
DR. LEONARD NOTIFIED OF PT'S STATUS. PT IS OVERSEDATED DUE TO CONTINOUS CYTOPATHOLOGY TECHNOLOGIST RATE OF 0.1MG AND BOLUS CYTOPATHOLOGY TECHNOLOGIST RATE OF 0.2MG AVAILABLE. CONTINOUS RATE DISCONTINUED, PT IS NOW HYPOTENSIVE, LEVOPHED ORDERED. WILL CONTINUE TO MONITOR.
[2021-07-21 06:50] LABS: BASOPHILS ABSOLUTE AUTO 0.05 K/mm3 (0.00-0.23); BASOPHILS PERCENT AUTO 1 % (0-2); Hematocrit 27.3 % (33.0-51.0); LYMPHOCYTES ABSOLUTE AUTO 0.18 K/mm3 (0.84-5.20); LYMPHOCYTES PERCENT AUTO 3 % (21-46); MONOCYTES ABSOLUTE AUTO 0.29 K/mm3 (0.16-1.47); MONOCYTES PERCENT AUTO 5 % (4-13); Mean Corpuscular Volume 94 fL (80-100); NRBC ABSOLUTE 0.02 K/mm3 (0.00-0.02); NRBC Auto 0.3 /100 WBC (0.0-0.2); Platelet Count 105 K/mm3 (150-400); RDW Coefficient Variation 16.6 % (11.7-14.2); RDW Standard Deviation 57.6 fL (35.1-46.3); White Blood Cell Count 6.05 K/mm3 (4.00-11.30)
[2021-07-21 06:55] LABS: Bun/Creatinine Ratio 27.9 (12.0-20.0); Calcium, Blood 7.1 mg/dL (8.5-10.1); Creatinine, Blood 0.93 mg/dL (0.40-1.00); Potassium, Blood 3.1 mmol/L (3.5-5.5)
--- NOTE | 2021-07-21 06:59 | NUR ---
SHIFT SUMMARY PT IN BED, ALERT AND ORIENTED X3 . AFTER SERQUOEL ADMINISTRATION AT 9PM, PT WAS ASLEEP AND BP DECREASED TO SBP OF 60S AND MAPS IN THE 40S. LEVOPHED INFUSING AT 15MCG/MIN AT THIS TIME. DIALUDID NETWORK ARCHITECT WAS RUNNING AT A CONTINOUS RATE OF 0.1MG/HR . DILAUDID NETWORK ARCHITECT NOW RUNNING AT BOLUS RATE OF 0.2MG Q 10 MINUTES. 1BM ON SHIFT, REPORT TO BE GIVEN TO DAY SHIFT RN.
[2021-07-21 07:05] LABS: EOSINOPHILS PERCENT AUTO 0 % (0-6); IMMATURE GRAN ABSOLUTE AUTO 0.33 K/mm3 (0.00-0.10); IMMATURE GRAN PERCENT AUTO 6 % (0-1); NEUTROPHILS PERCENT AUTO 86 % (41-73)
--- NOTE | 2021-07-21 14:30 | NUR ---
MID SHIFT SUMMARY PATIENT IS LESS IRRATABLE TODAY. REPORTS SHE GOT SOME SLEEP LAST NIGHT. CIRCUIT BOARD DRAFTER HAS BEEN DC'D AND PAIN CONTROL SWITCHED TO FENTANYL PATCH PER DR ZAMORA, PATIENT REPORTS THIS IS EFFECTIVE. SHE RECEIVED 1L NS BOLUS PER ORDER. TITRATING LEVOPHED DOWN, CURRENTLY AT 6MCG. ONLY ONE BOWEL MOVEMENT SO FAR TODAY. SHE GOT UP TO THE CHAIR WITH PT. HAS AN APPETITE.
--- NOTE | 2021-07-21 18:40 | NUR ---
END OF SHIFT SUMMARY PATIENT OFF LEVOPHED SINCE 1640. STATES HER MOOD IS IMPROVED TODAY COMPARED TO YESTERDAY. BM FREQUENCY IS ABOUT Q4 HOURS NOW. PAIN IS WELL CONTROLLED WITH FENTANYL PATCH. REQUIRED INTERMITTENT 2-4L 02NC WHILE SLEEPING, ROOM AIR WHILE AWAKE. HAS AN APPETITE, TAKING PO FLUIDS WELL.
--- NOTE | 2021-07-21 20:17 | NUR ---
ASSUMED CARE PT IN BED, ALERT AND ORIENTED X4. PT NO LONGER ON LEVOPHED GTT, MAP ABOVE 65. PT STATES PAIN IS CONTROLLED, NO DISTRESS NOTED. RESPIRATIONS EVEN AND UNLABORED. SEE SHIFT ASSESSMENT. WILL CONTINUE TO MONITOR.
--- NOTE | 2021-07-21 22:53 | NUR ---
PT HAD FOUR BMS SO FAR DURING SHIFT. RN DISCUSSED WITH PT THE USE OF RECTAL TUBE. PT AGREED THAT SHE WOULD LIKE ONE. RECTAL TUBE PLACED, PT TOLERATED WELL. WILL CONTINUE TO MONITOR.
--- NOTE | 2021-07-22 00:17 | NUR ---
PT HYPOTENSIVE AFTER HAVING SEVERAL LARGE LIQUID STOOLS. DR YANEZ NOTIFIED, 1 500ML BOLUS ORDERED FOR PATIENT, IF IT DOES NOT AID IN THE RAISING BP, SECOND 500ML BOLUS CAN BE GIVEN. ALSO, PT STARTED ON MAINTENANCE IV FLUIDS OF NS @ 75ML/HR. IF THAT DOES NOT HELP, LEVOPHED GTT CAN BE RESTARTED. WILL CONTINUE TO MONITOR.
--- NOTE | 2021-07-22 01:30 | NUR ---
PT STATED SHE WOULD LIKE RECTAL TUBE REMOVED, 600ML NOTED IN BAG. RECTAL TUBE REMOVED BY RN, HERRERA CARE COMPLETED. PT TOLERATED WELL. CONTINUE TO MONTIOR.
[2021-07-22 05:35] LABS: Hematocrit 23.3 % (33.0-51.0); Hemoglobin 7.5 g/dL (11.5-16.0); Mean Corpuscular HGB Conc 32.2 g/dL (31.5-36.5); Mean Corpuscular Volume 96 fL (80-100); Mean Platelet Volume 9.6 fL (9.1-12.4); NRBC ABSOLUTE 0.02 K/mm3 (0.00-0.02); NRBC Auto 0.6 /100 WBC (0.0-0.2); Platelet Count 65 K/mm3 (150-400); RDW Coefficient Variation 16.5 % (11.7-14.2); RDW Standard Deviation 59.5 fL (35.1-46.3); Red Blood Cell Count 2.42 M/mm3 (3.80-5.20); White Blood Cell Count 3.43 K/mm3 (4.00-11.30)
[2021-07-22 06:04] LABS: Anion Gap 10 mmol/L (6-16); Blood Urea Nitrogen 22 mg/dL (8-24); CO2, Blood 13 mmol/L (21-32); Calcium, Blood 7.1 mg/dL (8.5-10.1); Chloride, Blood 126 mmol/L (98-108); Creatinine, Blood 0.67 mg/dL (0.40-1.00); Glomerular Filtration Rate >60 (60-); Glucose, Blood 187 mg/dL (70-99); Potassium, Blood 2.7 mmol/L (3.5-5.5); Sodium, Blood 149 mmol/L (136-145)
--- NOTE | 2021-07-22 06:21 | NUR ---
SHIFT SUMMARY PT ALERT AND ORIENTED X4. PT HAD HYPOTENSION AFTER 11PM. 1L BOLUS OF NS GIVEN WITH NO IMPROVEMENT IN BP. PT RESTARTED ON LEVOPHED GTT. LEVOPHED CURRENTLY INFUSING AT 5MCG/MIN. PT HAD 4 LIQUID BMS BEFORE 11PM, RECTAL TUBE PLACED. 600ML OF GREEN/DARK BROWN STOOL DRAINED IN RECTAL TUBE BAG. RECTAL TUBE REMOVED BY PT'S REQUEST. PT DID NOT COMPLAIN OF PAIN DURING SHIFT, FENTANYL PATCH ON ABDOMEN. NO ACUTE DISTRESS NOTED. SAFETY MEASURES IN PLACE. REPORT TO BE GIVEN TO DAY SHIFT RN.
[2021-07-22 06:23] LABS: BAND PERCENT MAN 17 % (0-8); BASOPHILS PERCENT MAN 0 % (0-2); EOSINOPHILS ABSOLUTE MAN 0.03 K/mm3 (0.00-0.68); EOSINOPHILS PERCENT MAN 1 % (0-6); LYMPHOCYTES ABSOLUTE MAN 0.06 K/mm3 (0.84-5.20); LYMPHOCYTES PERCENT MAN 2 % (21-46); MONOCYTES ABSOLUTE MAN 0.13 K/mm3 (0.16-1.47); MONOCYTES PERCENT MAN 4 % (4-13); NEUTROPHILS ABSOLUTE MAN 3.18 K/mm3 (1.96-9.15); SEG NEUTROPHILS PERCENT MAN 76 % (41-73); TOTAL CELLS COUNTED 100
--- NOTE | 2021-07-22 09:27 | NUR ---
Pt care assumed from night nurse. pt aox4, resting comfortable. assessment performedas noted in chart. Onc Dr in to see patient. orderes to repeat CT, continue to monitor as stated in orders.
[2021-07-22 11:38] LABS: Alanine Aminotransfer (ALT/SGP 15 U/L (12-78); Albumin, Blood 1.5 g/dL (3.4-5.0); Albumin/Globulin Ratio 0.7 (0.8-1.8); Alk Phos 77 U/L (50-136); Anion Gap 6 mmol/L (6-16); Aspartate Aminotrans (AST/SGOT 13 U/L (12-37); Bilirubin, Total 0.2 mg/dL (0.1-1.0); Blood Urea Nitrogen 21 mg/dL (8-24); Bun/Creatinine Ratio 29.4 (12.0-20.0); CO2, Blood 15 mmol/L (21-32); Chloride, Blood 123 mmol/L (98-108); Creatinine, Blood 0.71 mg/dL (0.40-1.00); Ferritin, Serum 290 ng/mL (8-252); Globulin, Blood 2.3 g/dL (2.2-4.0); Glomerular Filtration Rate >60 (60-); Glucose, Blood 184 mg/dL (70-99); Iron Serum 59 ug/dL (50-170); Percent Saturation 45.4 % (15.0-50.0); Potassium, Blood 3.2 mmol/L (3.5-5.5); Sodium, Blood 144 mmol/L (136-145); Total Iron Binding Capacity 130 ug/dL (250-450); Total Protein, Blood 3.8 g/dL (6.4-8.2)
--- NOTE | 2021-07-22 14:55 | NUR ---
DR HOLLAND ALSO NOTIFIES IN PERSON OF LAC OF 2.3 FROM AM LABS. SODIUM BICARB ORDERED
--- NOTE | 2021-07-22 17:36 | NUR ---
PT HAD A PRODUCTIVE DAY. LEVO OFF AT 1200 AND NO ISSUES TO REPORT. PT BP HAS MAINTAINED AND AT TIMES BEEN HIGH WITH MAPS IN THE 90S. PT HAS NOT HAD MUCH APPITIGHT BUT HAS TOLLERATED EATING SMALL AMOUNTS. STEROIDS STARTED, BICARB 1/2 NS, AND ANTIBIOTICS CHANGED TO MERPENUM. SAMANTA DE JESUS'Samatnha. ORDERS FOR [facility] BLOOD SUGAR CHECKS BUT DR LEE STATES NO NEED TO COVER UNLESS OVER 250MG/DL. WILL CONTINUE TO MONITOR.
--- NOTE | 2021-07-22 21:43 | NUR ---
ASSUMED CARE PT ALERT AND ORIENTED X4, IN BED RESTING. NO DISTRESS NOTED. NO PAIN OR DISCOMFORT NOTED. OFF LEVOPHED GTT. PT ON SODIUM BICARB AT 150ML/HR. SEE SHIFT ASSESSMENT. WILL CONTINUE TO MONITOR.
[2021-07-23 05:22] LABS: Hematocrit 23.4 % (33.0-51.0); Hemoglobin 7.7 g/dL (11.5-16.0); Mean Corpuscular HGB 30.9 pg (26.0-34.0); Mean Corpuscular HGB Conc 32.9 g/dL (31.5-36.5); Mean Corpuscular Volume 94 fL (80-100); NRBC ABSOLUTE 0.03 K/mm3 (0.00-0.02); NRBC Auto 0.6 /100 WBC (0.0-0.2); Platelet Count 61 K/mm3 (150-400); RDW Coefficient Variation 16.4 % (11.7-14.2); RDW Standard Deviation 56.3 fL (35.1-46.3); Red Blood Cell Count 2.49 M/mm3 (3.80-5.20); White Blood Cell Count 4.86 K/mm3 (4.00-11.30)
[2021-07-23 05:47] LABS: Alanine Aminotransfer (ALT/SGP 18 U/L (12-78); Albumin, Blood 1.4 g/dL (3.4-5.0); Albumin/Globulin Ratio 0.6 (0.8-1.8); Alk Phos 67 U/L (50-136); Anion Gap 7 mmol/L (6-16); Aspartate Aminotrans (AST/SGOT 15 U/L (12-37); Bilirubin, Total 0.2 mg/dL (0.1-1.0); Blood Urea Nitrogen 18 mg/dL (8-24); Bun/Creatinine Ratio 31.8 (12.0-20.0); CO2, Blood 20 mmol/L (21-32); Calcium, Blood 6.4 mg/dL (8.5-10.1); Chloride, Blood 124 mmol/L (98-108); Creatinine, Blood 0.57 mg/dL (0.40-1.00); Globulin, Blood 2.3 g/dL (2.2-4.0); Glomerular Filtration Rate >60 (60-); Glucose, Blood 194 mg/dL (70-99); Magnesium, Blood 1.7 mg/dL (1.6-2.4); Phosphorus, Blood 1.2 mg/dL (2.5-4.9); Potassium, Blood 2.5 mmol/L (3.5-5.5); Sodium, Blood 151 mmol/L (136-145); Total Protein, Blood 3.7 g/dL (6.4-8.2)
[2021-07-23 05:59] LABS: BAND PERCENT MAN 4 % (0-8); BASOPHILS PERCENT MAN 0 % (0-2); EOSINOPHILS PERCENT MAN 0 % (0-6); LYMPHOCYTES ABSOLUTE MAN 0.09 K/mm3 (0.84-5.20); LYMPHOCYTES PERCENT MAN 2 % (21-46); MONOCYTES ABSOLUTE MAN 0.19 K/mm3 (0.16-1.47); MONOCYTES PERCENT MAN 4 % (4-13); NEUTROPHILS ABSOLUTE MAN 4.56 K/mm3 (1.96-9.15); SEG NEUTROPHILS PERCENT MAN 90 % (41-73); TOTAL CELLS COUNTED 100
--- NOTE | 2021-07-23 06:06 | NUR ---
SHIFT SUMMARY NO ACUTE EVENTS OVERNIGHT. PT ALERT AND ORIENTED X4. PT DID NOT COMPLAIN OF PAIN THROUGH THIS SHIFT. PT REMAINED WITH A MAP >65 THROUGH THE SHIFT. DID NOT NEED LEVOPHED GTT. SODIUM BICARB GTT INFUSING AT 150ML/HR. PT HAD 8 BMS OVER THE SHIFT. IMMODIUM PRN GIVEN X1. NO ACUTE DISTRESS NOTED. REPORT TO GIVEN TO DAY SHIFT RN.
--- NOTE | 2021-07-23 10:48 | NUR ---
DR HOLLAND NOTIFIED, ORDERED TO GIVE 20MEQ K X3, AND CONTINUE TO MONITOR. ASSUMED CARE OF PT FROM NIGHT RN, ASSESSMENT NOTED IN CHART. PT RESTING COMFORTABLE, CONTINUE TO HAVE MANY BM'S, VITALS STABLE AND OFF PRESSORES FOR ENTIRE NIGHT. BICARB CONT AT 150 AND ORDERES TO INCREASE TO [address] HOLLAND.
--- NOTE | 2021-07-23 10:52 | NUR ---
REDDENED AND SWOLEN AREAS TO THE LAT OF MIDLINE CATH. BANDAGE PLACED, NO PAIN OR INFULTRATION NOTED. WILL CONTINUE TO MONITOR.
[2021-07-23 15:23] LABS: Anion Gap 3 mmol/L (6-16); Blood Urea Nitrogen 15 mg/dL (8-24); Bun/Creatinine Ratio 24.4 (12.0-20.0); CO2, Blood 26 mmol/L (21-32); Calcium, Blood 6.4 mg/dL (8.5-10.1); Chloride, Blood 122 mmol/L (98-108); Creatinine, Blood 0.62 mg/dL (0.40-1.00); Glomerular Filtration Rate >60 (60-); Glucose, Blood 147 mg/dL (70-99); Sodium, Blood 151 mmol/L (136-145)
--- NOTE | 2021-07-23 20:00 | NUR ---
ASSUMING PT CARE: PT RESTING IN BED, DENIES PAIN OR DISCOMFORT. A&O, ABLE TO PARTICIPATE IN CARE BUT VERY WEAK. GIVEN ICE CHIPS & SPRITE, UNABLE TO TOLERATE BANANA FLAKES D/T TASTE. SEE INITIAL SHIFT DOCUMENTATION FOR FULL ASSESSMENT. WILL CONTINUE TO MONITOR & REPORT APPROPRIATE.
--- NOTE | 2021-07-24 | NUR ---
PT RESTING SOUNDLY. MAPs DEC TO 60 WHEN ASLEEP BUT RETURN TO >65 WHEN AWAKE. HR 90s, SINUS. 96% ON RA. PT USES CALL LIGHT APPROPRIATELY & HAS REMAINED CONTINENT UNTIL STAFF PLACES BED AGUAYO. WATERY STOOLS CONTINUE, HOWEVER LESS FREQUENT THAN COMPARED TO PREVIOUS DOCUMENTATION.
--- NOTE | 2021-07-24 04:00 | NUR ---
PT RESTING IN BED, RR EVEN & UNLABORED. STS SHE IS UNABLE TO SLEEP BUT IS CONTENT TO REST IN BED. REQUESTED & GIVEN ICE CHIPS. VSS.
[2021-07-24 04:19] LABS: Base Excess Venous 2.2 mmol/L; Bicarbonate Venous 25.6 mmol/L (24.0-30.0); PCO2 Venous 48.7 mmHg (38-42); pH Blood Venous 7.36 (7.34-7.37)
[2021-07-24 04:29] LABS: Hematocrit 24.8 % (33.0-51.0); Hemoglobin 8.2 g/dL (11.5-16.0); Mean Corpuscular HGB 30.9 pg (26.0-34.0); Mean Corpuscular HGB Conc 33.1 g/dL (31.5-36.5); Mean Corpuscular Volume 94 fL (80-100); Mean Platelet Volume 9.8 fL (9.1-12.4); NRBC ABSOLUTE 0.06 K/mm3 (0.00-0.02); NRBC Auto 0.5 /100 WBC (0.0-0.2); Platelet Count 71 K/mm3 (150-400); RDW Coefficient Variation 16.5 % (11.7-14.2); RDW Standard Deviation 56.4 fL (35.1-46.3); Red Blood Cell Count 2.65 M/mm3 (3.80-5.20); White Blood Cell Count 11.17 K/mm3 (4.00-11.30)
[2021-07-24 04:43] LABS: Anion Gap 4 mmol/L (6-16); Blood Urea Nitrogen 16 mg/dL (8-24); Bun/Creatinine Ratio 28.5 (12.0-20.0); CO2, Blood 28 mmol/L (21-32); Calcium, Blood 6.7 mg/dL (8.5-10.1); Chloride, Blood 119 mmol/L (98-108); Creatinine, Blood 0.56 mg/dL (0.40-1.00); Glomerular Filtration Rate >60 (60-); Glucose, Blood 142 mg/dL (70-99); Potassium, Blood 3.2 mmol/L (3.5-5.5); Sodium, Blood 151 mmol/L (136-145)
[2021-07-24 05:39] LABS: BAND PERCENT MAN 3 % (0-8); BASOPHILS PERCENT MAN 0 % (0-2); EOSINOPHILS PERCENT MAN 0 % (0-6); MONOCYTES ABSOLUTE MAN 0.22 K/mm3 (0.16-1.47); MONOCYTES PERCENT MAN 2 % (4-13); MYELOCYTE ABSOLUTE MAN 0.11 K/mm3 (0.00-0.00); MYELOCYTE PERCENT MAN 1 % (0-0); NEUTROPHILS ABSOLUTE MAN 10.83 K/mm3 (1.96-9.15); SEG NEUTROPHILS PERCENT MAN 94 % (41-73); TOTAL CELLS COUNTED 100
--- NOTE | 2021-07-24 05:54 | NUR ---
UPDATE: AM LAB RESULTS. CALLED HOSPITALIST, SABI & DISCUSSED AM LAB RESULTS. ORDERS GIVEN TO GIVE THE 0900 SCHEDULED DOSE OF KCl NOW. NO NEW ORDERS GIVEN.
--- NOTE | 2021-07-24 06:31 | NUR ---
SHIFT SUMMARY: PT WAS ABLE TO REST SOMEWHAT LAST NIGHT. SHE CONTINUES TO OFTEN CALL FOR PO FLUIDS & BED AGUAYO REQUESTS. PT ONLY HAD 4 SM, WATERY BMs LAST NIGHT. SHE STS SHE IS NOW ABLE TO HOLD IT IN MORE & REMAIN CONTINENT UNTIL THE BEDPAN IS BENEATH HER. SHE EXPRESSES THIS IS A GREAT IMPROVEMENT FOR HER. SHE REMAINS VERY WEAK, OFTEN REPEATING HER DISAPPOINTMENT IN NOT BEING ABLE TO WALK. HOWEVER SHE IS ABLE TO HELP SIGNIFICANTLY W/ TURNS. SHE SEEMS VERY DEPRESSED & OFTEN EXPRESSES HOPELESSNESS. AM LABS WERE DISCUSSED W/ HOSPITALIST, SEE PREVIOUS NOTATION.
[2021-07-24 12:07] LABS: HEPARIN INDUCED PLATELET AB 0.084 OD (0.000-0.400)
[2021-07-24 14:35] LABS: Anion Gap 2 mmol/L (6-16); Blood Urea Nitrogen 14 mg/dL (8-24); Bun/Creatinine Ratio 26.8 (12.0-20.0); CO2, Blood 30 mmol/L (21-32); Calcium, Blood 7.1 mg/dL (8.5-10.1); Chloride, Blood 117 mmol/L (98-108); Creatinine, Blood 0.52 mg/dL (0.40-1.00); Glomerular Filtration Rate >60 (60-); Glucose, Blood 128 mg/dL (70-99); Potassium, Blood 3.3 mmol/L (3.5-5.5); Sodium, Blood 149 mmol/L (136-145)
[2021-07-24 14:42] LABS: Phosphorus, Blood 0.9 mg/dL (2.5-4.9)
--- NOTE | 2021-07-24 18:56 | NUR ---
AOx4, complains of 4/10 abdominal pain denied interventions when offered, complains of some Nausea given 4mg zorfan with resolution, flat affect/depressed mood this shift, only tolerated 20 percent of meals today, BP WNL, +2/+1 pulses, some evidence of edema LEONIDAS and BLE +2/+1 respectively, NSR/ST 80/100s, diminished lungs with some exp wheeze RUL, denies SOB on RA, tender abdomen, mixed hyperactive/normoactive bowels, multiple loose green/brown seedy stools, phos critical 0.9 replaced with 30mmol rehceck in AM, powerport RUE oozing with significant bruising, line pulled, new 20g LAYLA arm patent.
--- NOTE | 2021-07-24 21:04 | NUR ---
ASSUMING PT CARE: PT RESTING IN BED, A&O, CHEERFUL @ TALKATIVE. PT SPEAKS ABOUT HER MOTIVATION TO "KEEP FIGHTING", SHE ENDORSES EXCITEMENT @ BEING ABLE TO STATUS CHANGE SOON & BE ABLE TO TAKE A SHOWER. PT IS EASILY DYSPNEIC WHEN TALKING, SPEAKING IN 2-3 WORD SENTENCES. SATS >90%, THOUGH GIVEN 2L/min VIA NC FOR DYSPNEA. ABD DISTENDED, TENDER. PT STS TODAY ABD FEELS IMPROVED. ABLE TO TOLERATE ALL PO MEDS & SUPPLEMENTS W/O DIFF. WILL CONTINUE TO MONITOR & REPORT APPROPRIATE.
--- NOTE | 2021-07-25 | NUR ---
PT RESTING IN BED W/ EYES CLOSED. AWAKES FOR A SHORT TIME W/ NURSING CARE, QUICKLY RETURNS TO SLEEPING. CYCLING BPs DIFF TO OBTAIN D/T BUE EDEMA & PT INTOLERANCE. MAPs >65, HR 90s & SINUS.
--- NOTE | 2021-07-25 04:00 | NUR ---
PT AWAKE, UNCOMFORTABLE, OFTEN REQUESTING DRINKS & TO BE REPOSITIONED. LIMBS ELEVATED ON PILLOWS FOR COMFORT. SCDs REMOVED. ALL EXTREMITIES ARE PROFOUNDLY EDEMETOUS w/ BUE NOW WEEPING. CONSISTENT BP UNABLE TO BE OBTAINED DESPITE ROTATING SITES. WILL CONTINUE TO PURSUE OTHER METHODS FOR CONSISTENT BPs.
[2021-07-25 05:15] LABS: Anion Gap 4 mmol/L (6-16); Blood Urea Nitrogen 13 mg/dL (8-24); Bun/Creatinine Ratio 26.6 (12.0-20.0); CO2, Blood 28 mmol/L (21-32); Chloride, Blood 114 mmol/L (98-108); Creatinine, Blood 0.49 mg/dL (0.40-1.00); Glomerular Filtration Rate >60 (60-); Glucose, Blood 149 mg/dL (70-99); Magnesium, Blood 1.6 mg/dL (1.6-2.4); Phosphorus, Blood 2.3 mg/dL (2.5-4.9); Potassium, Blood 3.9 mmol/L (3.5-5.5); Sodium, Blood 146 mmol/L (136-145)
[2021-07-25 13:54] LABS: Source, Urine Catheter
[2021-07-25 14:11] LABS: Appearance, Urine Clear (Clear); Bilirubin, Urine Neg (Neg); Blood, Urine 4+ (Neg); Color, Urine Amber (P-Yellow); Glucose Qualitative, Urine Neg (Neg); Ketones, Urine Neg (Neg); Leukocyte Esterase, Urine 1+ (Neg); Nitrite, Urine Pos (Neg); Protein, Urine 2+ (Neg); Urobilinogen, Urine NORM (Normal)
[2021-07-25 14:34] LABS: Red Blood Cells, Urine 0-2 /hpf (0-2); Squamous Epithelial Cells Rare /hpf (Few)
[2021-07-25 14:35] LABS: Bacteria Few /hpf; Hyaline Casts 0-2 /lpf (0-2)
--- NOTE | 2021-07-25 16:13 | NUR ---
Case conference with PT, who reports that diffuse edema is now a limiting factor for pt to participate with PT. Pt has weeping edema of davide UE and is also noteable dyspnic with sitting and any effort at mobility. Pt expressed being scared to PT. I have reviewed PN and Dr Perry's notes from [facility] visits. Dr Perry notes improvement in loose stools and blood counts. RN notes indicate diarrhea continues and pt is growing weaker, less mobile, anxious and depressed at ongoing issues that are not significantly improved enough that d/c to home can be considered currently, which is what pt has expressed is her top priority. [facility] plans to visit pt as soon as staffing allows for s/s assessment and advanced care planning per pt's wishes and goals.
--- NOTE | 2021-07-25 17:28 | NUR ---
AOx4, complained of nausea given 4mg zofran w/ resolution, complains 4/10 generalized pain denies any intervention, mood hopeless/depressed this shift, BP WNL, ST 90/100s, complains of SOB at times, sats low 90s, placed on 1L NC, 12kg positive since 4th, 40mg lasix given with 1L off, scheduled BID lasix order, foely placed for accurate I/O and at Pt request/skin integrity, edema worse this shift +3 BL upper arms and lower legs, PT worked with Pt, full Pt effort with profound weakness found, multiple loose stool x5 green/brown/seedy, Pt made PCU status awaiting bed.
--- NOTE | 2021-07-25 20:33 | NUR ---
UPDATE: CODE STATUS CHANGE. PT REQUESTS TO BE FULL CODE. OPTIONS OF TREATMENT EXPLAINED TO PT & SHE VERBALIZED UNDERSTANDING. PT RAISES HER ARM & STS "TAKE THIS OFF, I WANT IT OFF NOW", POINTING AT THE DNR BAND. DNR BAND REMOVED FROM PT & FROM ROOM. BEAU CALLED & UPDATED, ORDERS GIVEN TO DC DNR & INSTATE FULL CODE. ORDERS PLACED. [employer] AWARE.
[2021-07-26 05:08] LABS: Magnesium, Blood 1.5 mg/dL (1.6-2.4)
[2021-07-26 05:17] LABS: Anion Gap 5 mmol/L (6-16); Blood Urea Nitrogen 14 mg/dL (8-24); Bun/Creatinine Ratio 25.5 (12.0-20.0); CO2, Blood 30 mmol/L (21-32); Calcium, Blood 7.3 mg/dL (8.5-10.1); Chloride, Blood 112 mmol/L (98-108); Creatinine, Blood 0.55 mg/dL (0.40-1.00); Glomerular Filtration Rate >60 (60-); Glucose, Blood 162 mg/dL (70-99); Potassium, Blood 3.3 mmol/L (3.5-5.5); Sodium, Blood 147 mmol/L (136-145)
--- NOTE | 2021-07-26 06:11 | NUR ---
SHIFT SUMMARY: PT SLEPT WELL FOR MOST OF THE NIGHT, A GREAT IMPROVEMENT FROM LAST NIGHT. SHE HAS BEEN CONVERSIVE & PLEASANT. PT STS HER EDEMA IS IMPROVED. LIMBS +3 PITTING, THOUGH BUE APPEAR IMPROVED. 1,500ml OUTPUT. SBP STABLE. NO ACUTE NEG CHANGES.
--- NOTE | 2021-07-26 09:06 | NUR ---
ASSUMED PT CARE THIS AM. PT A/OX4, CONTINUES TO BE VERY DECONDITIONED, BUT REPORTS FEELING BETTER SINCE WORKING WITH PHYSICAL THERAPY YESTERDAY. VSS EXCEPT TACHYCARDIA 100-110. PT DENIES PAIN, N/V, ANY ACUTE INCREASED SOB. ONCOLOGIST AND HOSPITALIST IN TO SEE PT THIS AM. PLAN TO CONTINUE TO REPLACE ELECTROLYTES, LIKELY DOWNGRADE PT TO MEDICAL STATUS. PT VERBALIZES UNDERSTANDING.
--- NOTE | 2021-07-26 17:55 | NUR ---
SHIFT SUMMARY PT A/OX4, COOPERATIVE THROUGHOUT SHIFT, DECONDITIONED AND NEEDS LOTS OF ENCOURAGEMENT TO FOSTER INDEPENDENCE. SR-ST. NORMOTENSIVE. ON RA DURING SHIFT. MILD FORTUNE, RESOLVES WITH REST. LYTES REPLACED. MULTIPLE LOOSE BMS, PERICARE AND CATHETER CARE PROVIDED WITH EACH BM. FC WITH APPROX 2 L UO. PT REPORTS APPETITE IMPROVING. ZOFRAN GIVEN X1 FOR C/O NAUSEA. PT NOW MEDICAL STATUS.
--- NOTE | 2021-07-26 20:17 | NUR ---
SHIFT SUMMARY REPORT RECEIVED FROM DAY SHIFT RN. PT IN BED. AAOX4. NO PAIN OR DISTRESS NOTED. BARRIOS CATHETER AND RECTAL TUBE IN PLACE AND DRAINING. LEFT CHEST PORT IN PLACE AND TKO INFUSING. SEE SHIFT ASSESSMENT. WILL CONTINUE TO MONITOR.
[2021-07-27 05:44] LABS: Anion Gap 6 mmol/L (6-16); Blood Urea Nitrogen 16 mg/dL (8-24); Bun/Creatinine Ratio 33.1 (12.0-20.0); CO2, Blood 29 mmol/L (21-32); Calcium, Blood 6.9 mg/dL (8.5-10.1); Chloride, Blood 111 mmol/L (98-108); Creatinine, Blood 0.48 mg/dL (0.40-1.00); Glomerular Filtration Rate >60 (60-); Glucose, Blood 142 mg/dL (70-99); Magnesium, Blood 1.6 mg/dL (1.6-2.4); Phosphorus, Blood 3.6 mg/dL (2.5-4.9); Potassium, Blood 3.7 mmol/L (3.5-5.5); Sodium, Blood 146 mmol/L (136-145)
--- NOTE | 2021-07-27 06:05 | NUR ---
SHIFT SUMMARY NO ACUTE EVENTS OVERNIGHT. NO CHANGE TO MENTAL STATUS. PT REMAINS ST (110S), NO HYPOTENSION NOTED. PT DENIES ANY ABD PAIN. RECTAL TUBE IN PLACE AND DRAINING, BARRIOS CATHETER IN PLACE AND DRAINING. 1.5L OF YELLOW URINE DRAINED. PT STILL HAS 3+ PITTING EDEMA ON BUE & BLE. LEFT CHEST PORT IN PLACE AND NS TKO INFUSING @10ML/HR. NO ACUTE DISTRESS NOTED. REPORT TO BE GIVEN TO DAY SHIFT RN.
--- NOTE | 2021-07-27 06:50 | NUR ---
RECTAL TUBE REMOVED, STOOL NOTED TO BE MORE FORMED STILL SOFT BUT NO LONGER LIQUID STOOL. WILL REPORT TO DAY SHIFT RN.
--- NOTE | 2021-07-27 07:44 | NUR ---
CARE ASSUMED OF PT AT 070, BEDSIDE REPORT TAKEN. HEP GTT RUNNING AT 18UNITS/KG/HR @100KG. PT C/O R CHEST PAIN 8/, PT DUSKY AND DIAPHORETIC. SATS >90% ON 4L VIA N/C. PT RECEIVING NS BOLUS FOR HYPOTENSION. DR WEBBER AT BEDSIDE AT 0720. STAT ECHO ORDERED. WASTE RECYCLER AT BEDSIDE NOW. STAT VENOUS DOPPLER ORDERED PER DR WEBBER. IR NOT AVAIABLE AT THIS TIME, DR WEBBER UPDATED.
--- NOTE | 2021-07-27 09:30 | NUR ---
PATIENT TRANSFERRED FROM ICU 6 TO ROOM 355. REPORTS RECEIVED FROM JUAN JOSÉ ALBARRAN. MORNING MEDS NOT GIVEN BECAUSE PATIENT WASN'T FEELING WELL AND REFUSED. WILL HANG THIAMINE. PORT TO R UPPER CHEST WNL, NS @ TKO RUNNING. RECTAL TUBE REMOVED THIS AM BECUASE STOOL IS MORE FIRM. BARRIOS TO GRAVITY. REDNESS TO HERRERA AREA DUE TO FREQUENT DIARRHEA. DENIES ANY PAIN. TOLERATING DIET. ORIENTED TO ROOM AND USE OF CALL LIGHT. PATIENT DENIES ANY QUESTIONS OR CONCERNS AT THIS TIME. CALL LIGHT WITHIN REACH.
--- NOTE | 2021-07-27 18:43 | NUR ---
PATIENT TRANSFERRED FROM ICU 6 TODAY. A/OX4, CALLS APPROPRIATELY FOR ASSISTANCE. 3-4+ EDEMA TO BLEAND 2-+ TO BUE. BARRIOS TO GRAVITY. TAKES PILLS WHOLE 1 AT A TIME. VSS, ON RA. MEDIPORT TO L UPPER CHEST ACCESSED. PATIENT NEEDS ENOUCAOURAGEMENT TO MOVE AND DO THINGS THAT SHE IS ABLE TO FOR HERSELF. DIARRHEA X2 THIS SHIFT, RECTAL TUBE REMOVED THIS AM. WORKED WELL WITH OT TODAY. PLAN IS TO D/C TO SNF ONCE INSURANCE AUTHORIZES.
[2021-07-28 04:46] LABS: Hematocrit 22.8 % (33.0-51.0); Hemoglobin 7.4 g/dL (11.5-16.0); Mean Corpuscular HGB 31.8 pg (26.0-34.0); Mean Corpuscular HGB Conc 32.5 g/dL (31.5-36.5); Mean Corpuscular Volume 98 fL (80-100); Mean Platelet Volume 10.1 fL (9.1-12.4); RDW Coefficient Variation 18.3 % (11.7-14.2); RDW Standard Deviation 60.8 fL (35.1-46.3); Red Blood Cell Count 2.33 M/mm3 (3.80-5.20); White Blood Cell Count 9.06 K/mm3 (4.00-11.30)
[2021-07-28 04:55] LABS: Platelet Count 44 K/mm3 (150-400)
[2021-07-28 05:12] LABS: Anion Gap 3 mmol/L (6-16); Blood Urea Nitrogen 16 mg/dL (8-24); Bun/Creatinine Ratio 32.4 (12.0-20.0); CO2, Blood 32 mmol/L (21-32); Calcium, Blood 6.6 mg/dL (8.5-10.1); Chloride, Blood 106 mmol/L (98-108); Creatinine, Blood 0.49 mg/dL (0.40-1.00); Glomerular Filtration Rate >60 (60-); Glucose, Blood 109 mg/dL (70-99); Potassium, Blood 3.9 mmol/L (3.5-5.5); Sodium, Blood 141 mmol/L (136-145)
--- NOTE | 2021-07-28 17:11 | NUR ---
NO ACUTE CHANGES THIS SHIFT. PATIENT AWAITING AUTHORIZATION FOR SNF. APPETITE IMPROVING, DENIES ANY NAUSEA OR ABDOMINAL PAIN. CONTINUES TO HAVE LOOSE STOOL. BARRIOS TO GRAVITY. 3+ EDEMA TO BU/BLE EXTREMITIES. VSS, ON RA. WORKED WITH OT TODAY. ABLE TO ASSIST WITH REPOSITIONING. COOPERATIVE WITH CARE, ABLE TO MAKE NEEDS KNOWN.
[2021-07-29 04:39] LABS: Hematocrit 21.1 % (33.0-51.0); Hemoglobin 6.8 g/dL (11.5-16.0); Mean Corpuscular HGB 31.5 pg (26.0-34.0); Mean Corpuscular HGB Conc 32.2 g/dL (31.5-36.5); Mean Corpuscular Volume 98 fL (80-100); Mean Platelet Volume 10.5 fL (9.1-12.4); RDW Coefficient Variation 18.4 % (11.7-14.2); RDW Standard Deviation 64.4 fL (35.1-46.3); Red Blood Cell Count 2.16 M/mm3 (3.80-5.20); White Blood Cell Count 6.11 K/mm3 (4.00-11.30)
[2021-07-29 04:46] LABS: Platelet Count 45 K/mm3 (150-400)
--- NOTE | 2021-07-29 04:54 | NUR ---
SHIFT SUMMARY PT IS AA&OX3-4. ABLE TO MAKE NEEDS KNOWN. PT REMAINS WEAK AND SLEEPY. SHE HAD 3 EPISODES OF MUCOUSY LOOSE STOOLS ON THIS SHIFT. SCHEDULED MEDS ADMINISTERED PER EMAR. DENIES PAIN. CRITICAL LAB OF PLATELET 45 REPORTED PER LAB. ADLS PROVIDED, SAFETY MEASURES IN PLACE. WILL CONTINUE TO MONITOR.
--- NOTE | 2021-07-29 05:12 | NUR ---
DR. HAMEED NOTIFIED ABOUT PT CRITICAL LAB OF PLATELET COUNT 45, SHE STATES WE SHOULD CONTINUE TO MONITOR. NO NEW ORDERS.
[2021-07-29 05:16] LABS: Albumin, Blood 1.5 g/dL (3.4-5.0); Anion Gap 5 mmol/L (6-16); Blood Urea Nitrogen 18 mg/dL (8-24); Bun/Creatinine Ratio 38.1 (12.0-20.0); CO2, Blood 30 mmol/L (21-32); Calcium, Blood 6.7 mg/dL (8.5-10.1); Chloride, Blood 105 mmol/L (98-108); Creatinine, Blood 0.47 mg/dL (0.40-1.00); Glomerular Filtration Rate >60 (60-); Glucose, Blood 108 mg/dL (70-99); Magnesium, Blood 1.5 mg/dL (1.6-2.4); Phosphorus, Blood 2.7 mg/dL (2.5-4.9); Potassium, Blood 3.8 mmol/L (3.5-5.5); Sodium, Blood 140 mmol/L (136-145)
[2021-07-29 05:33] LABS: BAND PERCENT MAN 10 % (0-8); BASOPHILS PERCENT MAN 0 % (0-2); EOSINOPHILS PERCENT MAN 0 % (0-6); LYMPHOCYTES ABSOLUTE MAN 0.18 K/mm3 (0.84-5.20); LYMPHOCYTES PERCENT MAN 3 % (21-46); MONOCYTES PERCENT MAN 0 % (4-13); NEUTROPHILS ABSOLUTE MAN 5.92 K/mm3 (1.96-9.15); SEG NEUTROPHILS PERCENT MAN 87 % (41-73); TOTAL CELLS COUNTED 100
--- NOTE | 2021-07-29 10:35 | NUR ---
BLOOD STARTED AT 10:15. PATIENT COMPLAINED OF NAUSEA AT 10:24, BLOOD INFUSION STOPED AT THIS TIME. DR. ALVAREZ NOTIFIED OF PATIENT'S C/O NAUSEA. DR. ALVAREZ ORDERED ZOFRAN BE GIVEN IV AND THE BLOOD TRANAFUSION RESUMED.
[2021-07-29 15:48] LABS: Hematocrit 28.3 % (33.0-51.0); Hemoglobin 9.6 g/dL (11.5-16.0)
--- NOTE | 2021-07-29 17:04 | NUR ---
PATIENT IS ALERT AND ORIENTED AND COOPERATIVE WITH CARE. SHE HAS WATERY DIARRHEA, USES THE BEDPAN. BARRIOS IS IN PLACE AND DRAINING. MEDIPORT IS ACCESSED AND HEPARIN LOCKED. 1 UNIT OF PRBC WAS TRANSFUSED THIS SHIFT. PATIENT C/O NAUSEA DURING THE TRANSFUSION, MEDICATED WITH ZOFRAN. WORKED WITH PHYSICAL THERAPY, REFUSED OCCUPATIONAL THERAPY. PATIENT HAS A FREIND VISITING AT THIS TIME. WILL CONTINUE TO MONITOR
--- NOTE | 2021-07-30 04:38 | NUR ---
SHIFT SUMMARY PT IS AA&OX3, ABLE TO MAKE NEEDS KNOWN. NO ACUTE CHANGES ON THIS SHIFT. PT HAD 3 LOOSE BM WITH MUCUS. DENIES PAIN. COOPERATIVE WITH CARE. SCHEDULED MEDS ADMINISTERED PER EMAR. ADLS PROVIDED, SAFETY MEASURES IN PLACE. WILL CONTINUE TO MONITOR.
[2021-07-30 08:27] LABS: Hematocrit 26.6 % (33.0-51.0); Hemoglobin 8.8 g/dL (11.5-16.0); Mean Corpuscular HGB 31.7 pg (26.0-34.0); Mean Corpuscular HGB Conc 33.1 g/dL (31.5-36.5); Mean Corpuscular Volume 96 fL (80-100); Mean Platelet Volume 10.8 fL (9.1-12.4); Platelet Count 58 K/mm3 (150-400); RDW Coefficient Variation 18.2 % (11.7-14.2); RDW Standard Deviation 59.7 fL (35.1-46.3); Red Blood Cell Count 2.78 M/mm3 (3.80-5.20)
[2021-07-30 08:39] LABS: Albumin, Blood 1.5 g/dL (3.4-5.0); Anion Gap 6 mmol/L (6-16); Blood Urea Nitrogen 15 mg/dL (8-24); Bun/Creatinine Ratio 32.5 (12.0-20.0); CO2, Blood 28 mmol/L (21-32); Calcium, Blood 6.7 mg/dL (8.5-10.1); Chloride, Blood 106 mmol/L (98-108); Creatinine, Blood 0.46 mg/dL (0.40-1.00); Glomerular Filtration Rate >60 (60-); Glucose, Blood 117 mg/dL (70-99); Magnesium, Blood 1.6 mg/dL (1.6-2.4); Phosphorus, Blood 2.2 mg/dL (2.5-4.9); Sodium, Blood 140 mmol/L (136-145)
[2021-07-30 09:02] LABS: BAND PERCENT MAN 11 % (0-8); BASOPHILS PERCENT MAN 0 % (0-2); EOSINOPHILS PERCENT MAN 0 % (0-6); LYMPHOCYTES ABSOLUTE MAN 0.44 K/mm3 (0.84-5.20); LYMPHOCYTES PERCENT MAN 7 % (21-46); MONOCYTES ABSOLUTE MAN 0.19 K/mm3 (0.16-1.47); MONOCYTES PERCENT MAN 3 % (4-13); NEUTROPHILS ABSOLUTE MAN 5.76 K/mm3 (1.96-9.15); SEG NEUTROPHILS PERCENT MAN 79 % (41-73); TOTAL CELLS COUNTED 100
--- NOTE | 2021-07-30 14:12 | NUR ---
SHIFT SUMMARY PT RESTING QUIETLY AT START OF SHIFT. PER SHIFT REPORT, PT REFUSED LAB DRAW EARLY THIS AM. PT REPORTED THAT SHE HAS A MEDIPORT AND USES IT FOR LAB DRAW. DR ALVAREZ NOTIFIED, AND ORDERS PLACED FOR LABS TO BE DRAWN FROM MEDIPROT. PT CONTINUES TO HAVE LOOSE STOOLS; IMMODIUM, QUESTRAN, AND BANANA FLAKES GIVEN PER EMAR W/O RESULTS. PT REPORTED LOSS OF USE TO BLE'S AFTER IMMUNE THERAPY STARTED. P/T IN TO WORK WITH PT TODAY, REPORTING THAT PT CAN DO MORE FOR HERSELF THAN SHE IS STATING TO NURSING STAFF. PT ENCOURAGED TO HELP HER SELF AND WORK ON EXERCISES WHILE IN BED. DR ALVAREZ IN TO SEE PT THIS AFTERNOON. PT C/O ABD BLOATING; SIMETHICONE ORDERED. PT RESTING QUIETLY AT THIS TIME. CALL LT IN REACH. ABLE TO MAKE NEEDS KNOWN. CALLS FOR BED AGUAYO NEEDED.
--- NOTE | 2021-07-31 04:46 | NUR ---
SHIFT SUMMARY PT AA&OX3. HAD 3 LOOSE BMS THIS SHIFT.LOPERAMIDE 2MG GIVENX1 WITH NOT MUCH EFFECT. PT REMAINS WEAK. COOPERATIVE WITH CARE, ADLS PROVIDED, SAFETY MEASURES IN PLACE.WILL CONTINUE TO MONITOR.
[2021-07-31 06:56] LABS: BASOPHILS ABSOLUTE AUTO 0.01 K/mm3 (0.00-0.23); LYMPHOCYTES ABSOLUTE AUTO 0.41 K/mm3 (0.84-5.20); MONOCYTES ABSOLUTE AUTO 0.27 K/mm3 (0.16-1.47); MONOCYTES PERCENT AUTO 7 % (4-13)
[2021-07-31 06:58] LABS: BASOPHILS PERCENT AUTO 0 % (0-2); Hematocrit 25.9 % (33.0-51.0); Hemoglobin 8.6 g/dL (11.5-16.0); LYMPHOCYTES PERCENT AUTO 11 % (21-46); Mean Corpuscular HGB 31.6 pg (26.0-34.0); Mean Corpuscular HGB Conc 33.2 g/dL (31.5-36.5); Mean Corpuscular Volume 95 fL (80-100); Mean Platelet Volume 10.3 fL (9.1-12.4); Platelet Count 58 K/mm3 (150-400); RDW Coefficient Variation 17.1 % (11.7-14.2); RDW Standard Deviation 56.8 fL (35.1-46.3); Red Blood Cell Count 2.72 M/mm3 (3.80-5.20); White Blood Cell Count 3.69 K/mm3 (4.00-11.30)
[2021-07-31 07:01] LABS: EOSINOPHILS PERCENT AUTO 0 % (0-6); IMMATURE GRAN ABSOLUTE AUTO 0.01 K/mm3 (0.00-0.10); IMMATURE GRAN PERCENT AUTO 0 % (0-1); NEUTROPHILS ABSOLUTE AUTO 2.94 K/mm3 (1.96-9.15); NEUTROPHILS PERCENT AUTO 81 % (41-73)
[2021-07-31 07:29] LABS: Magnesium, Blood 1.8 mg/dL (1.6-2.4)
[2021-07-31 07:40] LABS: Albumin, Blood 1.5 g/dL (3.4-5.0); Anion Gap 8 mmol/L (6-16); Blood Urea Nitrogen 14 mg/dL (8-24); CO2, Blood 27 mmol/L (21-32); Calcium, Blood 5.4 mg/dL (8.5-10.1); Chloride, Blood 103 mmol/L (98-108); Creatinine, Blood 0.47 mg/dL (0.40-1.00); Glomerular Filtration Rate >60 (60-); Glucose, Blood 108 mg/dL (70-99); Phosphorus, Blood 2.4 mg/dL (2.5-4.9); Potassium, Blood 3.8 mmol/L (3.5-5.5); Sodium, Blood 138 mmol/L (136-145)
--- NOTE | 2021-07-31 07:53 | NUR ---
CRITICAL VALUE REPORTED CRITICAL VALUE OF CALCIUM 5.[address] ALVAREZ IN PERSON.
--- NOTE | 2021-07-31 16:53 | NUR ---
SHIFT SUMMARY PATIENT IS ALERT AND ORIENTED X3. PATIENT HAS BEEN RESTING OFF AND ON DURING THE DAY. PATIENT IS SLUGGISH AND SLOW TO RESPOND. PATIENT HAS BEEN HAVING LOOSE STOOLS THIS SHIFT. PATIENT HAD A CRITICAL LOW OF CALCIUM WHICH WAS CALLED IN TO . NO OTHER ACUTE EVENTS THIS SHIFT. VITAL SIGNS REVIEWED. CALL LIGHT IN REACH. WILL MONITOR UNTIL SHIFT CHANGE.
--- NOTE | 2021-08-01 05:16 | NUR ---
SHIFT SUMMARY PT ALERT AND ORIENTED. SEVERAL EPISODE OF LOOSE STOOL OBSERVED DURING SHIFT. PATIENT USED SUPPLEMENT.CALL LIGHT WHITIN REACH. KEEP MONITORING
[2021-08-01 07:05] LABS: Hematocrit 24.9 % (33.0-51.0); Hemoglobin 8.5 g/dL (11.5-16.0); Mean Corpuscular HGB 32.1 pg (26.0-34.0); Mean Corpuscular HGB Conc 34.1 g/dL (31.5-36.5); Mean Corpuscular Volume 94 fL (80-100); Mean Platelet Volume 10.3 fL (9.1-12.4); RDW Coefficient Variation 16.8 % (11.7-14.2); RDW Standard Deviation 56.4 fL (35.1-46.3); Red Blood Cell Count 2.65 M/mm3 (3.80-5.20); White Blood Cell Count 3.42 K/mm3 (4.00-11.30)
[2021-08-01 07:22] LABS: Albumin, Blood 1.4 g/dL (3.4-5.0); Anion Gap 8 mmol/L (6-16); Blood Urea Nitrogen 12 mg/dL (8-24); Bun/Creatinine Ratio 25.9 (12.0-20.0); CO2, Blood 27 mmol/L (21-32); Calcium, Blood 6.8 mg/dL (8.5-10.1); Chloride, Blood 99 mmol/L (98-108); Creatinine, Blood 0.46 mg/dL (0.40-1.00); Glomerular Filtration Rate >60 (60-); Glucose, Blood 89 mg/dL (70-99); Phosphorus, Blood 5.3 mg/dL (2.5-4.9); Potassium, Blood 3.9 mmol/L (3.5-5.5); Sodium, Blood 134 mmol/L (136-145)
[2021-08-01 07:29] LABS: BAND PERCENT MAN 13 % (0-8); BASOPHILS PERCENT MAN 0 % (0-2); EOSINOPHILS PERCENT MAN 0 % (0-6); LYMPHOCYTES ABSOLUTE MAN 0.47 K/mm3 (0.84-5.20); LYMPHOCYTES PERCENT MAN 14 % (21-46); METAMYELOCYTE ABSOLUTE MAN 0.03 K/mm3 (0.00-0.00); METAMYELOCYTE PERCENT MAN 1 % (0-0); MONOCYTES ABSOLUTE MAN 0.13 K/mm3 (0.16-1.47); MONOCYTES PERCENT MAN 4 % (4-13); NEUTROPHILS ABSOLUTE MAN 2.77 K/mm3 (1.96-9.15); SEG NEUTROPHILS PERCENT MAN 68 % (41-73); TOTAL CELLS COUNTED 100
[2021-08-01 08:25] LABS: Platelet Count 66 K/mm3 (150-400)
--- NOTE | 2021-08-01 16:01 | NUR ---
SHIFT SUMMARY PT IS AOX4. PT TALKATIVE AND CHEERFUL THIS SHIFT. PT HAD A VISITOR. PT DENIES PAIN, N/V, SOB. MEDIPORT DEACCESSED AND REACCESSED PER 7 DAY PROTOCOL. PT APPETITE MODERATE TO GOOD. BARRIOS IS PATENT AND DRAINING YELLOW URINE. PT WORKED WITH PT/OT. PT CONTINUES TO HAVE BOUTS OF DIARRHEA. PT IS IN BED, CALL LIGHT IN REACH, LOW POSITION.
[2021-08-02 05:01] LABS: BASOPHILS ABSOLUTE AUTO 0.01 K/mm3 (0.00-0.23); BASOPHILS PERCENT AUTO 0 % (0-2); Hematocrit 25.3 % (33.0-51.0); Hemoglobin 8.7 g/dL (11.5-16.0); LYMPHOCYTES ABSOLUTE AUTO 0.41 K/mm3 (0.84-5.20); LYMPHOCYTES PERCENT AUTO 10 % (21-46); MONOCYTES ABSOLUTE AUTO 0.25 K/mm3 (0.16-1.47); MONOCYTES PERCENT AUTO 6 % (4-13); Mean Corpuscular HGB 32.2 pg (26.0-34.0); Mean Corpuscular HGB Conc 34.4 g/dL (31.5-36.5); Mean Corpuscular Volume 94 fL (80-100); Mean Platelet Volume 9.5 fL (9.1-12.4); Platelet Count 71 K/mm3 (150-400); RDW Coefficient Variation 16.9 % (11.7-14.2); RDW Standard Deviation 55.8 fL (35.1-46.3); White Blood Cell Count 3.93 K/mm3 (4.00-11.30)
[2021-08-02 05:05] LABS: EOSINOPHILS PERCENT AUTO 0 % (0-6); IMMATURE GRAN ABSOLUTE AUTO 0.04 K/mm3 (0.00-0.10); IMMATURE GRAN PERCENT AUTO 1 % (0-1); NEUTROPHILS ABSOLUTE AUTO 3.22 K/mm3 (1.96-9.15); NEUTROPHILS PERCENT AUTO 82 % (41-73)
[2021-08-02 05:35] LABS: Albumin, Blood 1.7 g/dL (3.4-5.0); Anion Gap 8 mmol/L (6-16); Blood Urea Nitrogen 15 mg/dL (8-24); CO2, Blood 28 mmol/L (21-32); Calcium, Blood 6.9 mg/dL (8.5-10.1); Chloride, Blood 100 mmol/L (98-108); Creatinine, Blood 0.58 mg/dL (0.40-1.00); Glomerular Filtration Rate >60 (60-); Glucose, Blood 112 mg/dL (70-99); Magnesium, Blood 1.5 mg/dL (1.6-2.4); Phosphorus, Blood 3.8 mg/dL (2.5-4.9); Sodium, Blood 136 mmol/L (136-145)
--- NOTE | 2021-08-02 06:19 | NUR ---
SHIFT SUMMARY PT HAS ONE EPISODE OF LOOSE STOOL DURING MY SHIFT. TURNING EVERY 2 HOURS. CALL LIGHT WHITIN REACH. NO ACUTE DISTRESS OBSERVED. VITALS SIGNS WHITIN NORMAL RANGE. KEEP MONITORING
--- NOTE | 2021-08-02 15:14 | NUR ---
BARRIOS DC'D BARRIOS DC'D WITHOUT ISSUE. BARRIOS INSERTION UNDOCUMENTED.
--- NOTE | 2021-08-02 17:07 | NUR ---
DAY SHIFT SUMMARY PT PLESANT, 2 PERSON ASSIST TO CHAIR AT BEDSIDE, PT ABLE TO GET PATIENT TO BEDSIDE CHAIR. BEDPAN USED WITH SOPHIE DIAZ. IV FLUIDS THROUGH PORT. VISITOR SITTING WITH PT FOR END OF VISITIING HOURS.
--- NOTE | 2021-08-03 04:12 | NUR ---
SHIFT SUMMARY ADMITTED FOR HYPOTENSION, DIARRHEA/WEAKNESS. FULL CODE. PLAN IS FOR PLACEMENT WHEN STABLE. WE HAVE BEEN USING A BEDPAN THIS SHIFT DUE TO HER WEAKNESS. MEDIPORT IN LEFT CHEST WALL. DR. POWELL IS ONCOLOGY CONSULT. HX: LUNG CANCER. PHYSICAL & OCCUPATIONAL THERAPIES ASSISTING W/THIS PT.
--- NOTE | 2021-08-03 16:56 | NUR ---
DAY SHIFT SUMMARY PT ABLE TO WORK WITH PATIENT TO STAND WITH WALKER FOR A SHORT PERIOD. OT ABLE TO WORK WITH PATIENT AT BEDSIDE. DRESSING CHANGED ON REDNESS TO SACRUM. PATIENT HESITANT TO AMBULATED STATING SHE IS AWARE OF HER WEAKNESS AND NEED TO URINATE FREQUENTLY WITH BEDPAN, VOICED SHE WOULD ATTEMPT TO AMBULATE INTO A RECLINER AT BEDSIDE IF SHE HAD ONE.
--- NOTE | 2021-08-04 04:01 | NUR ---
SHIFT SUMMARY ADMITTED FOR HYPOTENSION. FULL CODE. MEDIPORT IN LEFT CHEST WALL - ACCESSED. PHYSICAL & OCCUPATIONAL THERAPIES ASSISTING W/THIS PT. PLAN IS FOR DC TO SNF WHEN STABLE FOR DC. SHE STILL APPEARS TO BE WEAK, BUT SLOWLY IMPROVING. DR. POWELL IS ONCOLOGY CONSULT. HX: LUNG CANCER, FALLS.
[2021-08-04 05:16] LABS: Hematocrit 24.1 % (33.0-51.0); Hemoglobin 8.1 g/dL (11.5-16.0); Mean Corpuscular HGB 32.1 pg (26.0-34.0); Mean Corpuscular HGB Conc 33.6 g/dL (31.5-36.5); Mean Corpuscular Volume 96 fL (80-100); Mean Platelet Volume 9.2 fL (9.1-12.4); Platelet Count 77 K/mm3 (150-400); RDW Coefficient Variation 17.2 % (11.7-14.2); RDW Standard Deviation 59.1 fL (35.1-46.3); Red Blood Cell Count 2.52 M/mm3 (3.80-5.20); White Blood Cell Count 4.96 K/mm3 (4.00-11.30)
[2021-08-04 05:43] LABS: BAND PERCENT MAN 20 % (0-8); BASOPHILS PERCENT MAN 0 % (0-2); EOSINOPHILS PERCENT MAN 0 % (0-6); LYMPHOCYTES ABSOLUTE MAN 0.44 K/mm3 (0.84-5.20); LYMPHOCYTES PERCENT MAN 9 % (21-46); METAMYELOCYTE ABSOLUTE MAN 0.04 K/mm3 (0.00-0.00); METAMYELOCYTE PERCENT MAN 1 % (0-0); MONOCYTES ABSOLUTE MAN 0.24 K/mm3 (0.16-1.47); MONOCYTES PERCENT MAN 5 % (4-13); NEUTROPHILS ABSOLUTE MAN 4.21 K/mm3 (1.96-9.15); SEG NEUTROPHILS PERCENT MAN 65 % (41-73); TOTAL CELLS COUNTED 100
[2021-08-04 05:47] LABS: Albumin, Blood 1.8 g/dL (3.4-5.0); Anion Gap 11 mmol/L (6-16); Blood Urea Nitrogen 14 mg/dL (8-24); Bun/Creatinine Ratio 25.6 (12.0-20.0); CO2, Blood 26 mmol/L (21-32); Calcium, Blood 7.2 mg/dL (8.5-10.1); Chloride, Blood 102 mmol/L (98-108); Creatinine, Blood 0.55 mg/dL (0.40-1.00); Glomerular Filtration Rate >60 (60-); Glucose, Blood 115 mg/dL (70-99); Potassium, Blood 2.6 mmol/L (3.5-5.5); Sodium, Blood 139 mmol/L (136-145)
--- NOTE | 2021-08-04 14:28 | NUR ---
Case conference note: Spoke with RN re: current status and concerns for pt's lack of participation in care and discouragement with lengthy hospital stay. Requested Candy Roller visit and pal care will try to see also when staffing allows.
--- NOTE | 2021-08-04 17:37 | NUR ---
PATIENT IS ALERT AND ORIENTED AND COOPERATIVE WITH CARE. PALLIATIVE CARE WAS ASKED TO SEE THE PATIENT TODAY. PATIENT WORKED WITH PT AND OT. UP TO CHAIR FOR LUNCH. MEDICATED FOR NAUSEA ONCE. WILL CONTINUE TO MONITOR
--- NOTE | 2021-08-05 04:18 | NUR ---
SHIFT SUMMARY ADMITTED FOR HYPOTENSION. FULL CODE. PT EXPERIENCING FREQUENT DIARRHEA FROM CHEMO/RADIATION TX FOR LUNG CANCER. DR. POWELL IS ONCOLOGY CONSULT. MEDIPORT IN LEFT CHEST. PHYSICAL AND OCCUPATIONAL THERAPIES ARE WORKING WITH THIS PT. SHE IS STILL SO WEAK, WE'VE BEEN USING A BEDPAN. CARDIAC DIET. RA. A&O X4. PLAN IS FOR PLACEMENT WHEN READY FOR DC.
[2021-08-05 05:06] LABS: Hemoglobin 7.2 g/dL (11.5-16.0); Mean Corpuscular HGB 31.2 pg (26.0-34.0); Mean Corpuscular HGB Conc 32.7 g/dL (31.5-36.5); Mean Corpuscular Volume 95 fL (80-100); Mean Platelet Volume 9.1 fL (9.1-12.4); Platelet Count 59 K/mm3 (150-400); RDW Coefficient Variation 17.1 % (11.7-14.2); RDW Standard Deviation 58.9 fL (35.1-46.3); Red Blood Cell Count 2.31 M/mm3 (3.80-5.20); White Blood Cell Count 3.67 K/mm3 (4.00-11.30)
[2021-08-05 06:13] LABS: Albumin, Blood 2.1 g/dL (3.4-5.0); Anion Gap 7 mmol/L (6-16); Blood Urea Nitrogen 14 mg/dL (8-24); Bun/Creatinine Ratio 23.6 (12.0-20.0); CO2, Blood 27 mmol/L (21-32); Calcium, Blood 8.2 mg/dL (8.5-10.1); Chloride, Blood 107 mmol/L (98-108); Creatinine, Blood 0.59 mg/dL (0.40-1.00); Glomerular Filtration Rate >60 (60-); Glucose, Blood 126 mg/dL (70-99); Magnesium, Blood 1.7 mg/dL (1.6-2.4); Phosphorus, Blood 2.5 mg/dL (2.5-4.9); Potassium, Blood 3.5 mmol/L (3.5-5.5); Sodium, Blood 141 mmol/L (136-145)
[2021-08-05 06:53] LABS: BAND PERCENT MAN 21 % (0-8); BASOPHILS PERCENT MAN 0 % (0-2); EOSINOPHILS PERCENT MAN 0 % (0-6); LYMPHOCYTES ABSOLUTE MAN 0.25 K/mm3 (0.84-5.20); LYMPHOCYTES PERCENT MAN 7 % (21-46); MONOCYTES ABSOLUTE MAN 0.03 K/mm3 (0.16-1.47); MONOCYTES PERCENT MAN 1 % (4-13); MYELOCYTE ABSOLUTE MAN 0.03 K/mm3 (0.00-0.00); MYELOCYTE PERCENT MAN 1 % (0-0); NEUTROPHILS ABSOLUTE MAN 3.33 K/mm3 (1.96-9.15); SEG NEUTROPHILS PERCENT MAN 70 % (41-73); TOTAL CELLS COUNTED 100
[2021-08-05 12:39] LABS: Hematocrit 23.9 % (33.0-51.0); Hemoglobin 7.7 g/dL (11.5-16.0)
--- NOTE | 2021-08-05 16:16 | NUR ---
SHIFT SUMMARY PT IS AOX4. PT DENIES PAIN, N/V, SOB. PT APPETITE IS GOOD THIS SHIFT AND PT ATE SUBWAY BROUGHT BY VISITOR. PT CONTINUES TO WORK WITH PT/OT AND REMAINS BEDREST/2 MAX ASSIST, BUT REMAINS MOTIVATED. PT MEDIPORT HEPARIN LOCKED. PLAN IS FOR SNF PLACEMENT. PT IS IN BED, CALL LIGHT IN REACH, LOW POSITION.
[2021-08-06 05:19] LABS: BASOPHILS ABSOLUTE AUTO 0.01 K/mm3 (0.00-0.23); BASOPHILS PERCENT AUTO 0 % (0-2); Hematocrit 23.3 % (33.0-51.0); Hemoglobin 7.7 g/dL (11.5-16.0); LYMPHOCYTES ABSOLUTE AUTO 0.39 K/mm3 (0.84-5.20); LYMPHOCYTES PERCENT AUTO 8 % (21-46); MONOCYTES ABSOLUTE AUTO 0.21 K/mm3 (0.16-1.47); MONOCYTES PERCENT AUTO 4 % (4-13); Mean Corpuscular Volume 97 fL (80-100); Mean Platelet Volume 9.2 fL (9.1-12.4); Platelet Count 62 K/mm3 (150-400); RDW Coefficient Variation 17.2 % (11.7-14.2); RDW Standard Deviation 60.4 fL (35.1-46.3); Red Blood Cell Count 2.41 M/mm3 (3.80-5.20); White Blood Cell Count 4.96 K/mm3 (4.00-11.30)
[2021-08-06 05:34] LABS: EOSINOPHILS PERCENT AUTO 0 % (0-6); IMMATURE GRAN ABSOLUTE AUTO 0.08 K/mm3 (0.00-0.10); IMMATURE GRAN PERCENT AUTO 2 % (0-1); NEUTROPHILS ABSOLUTE AUTO 4.27 K/mm3 (1.96-9.15); NEUTROPHILS PERCENT AUTO 86 % (41-73)
[2021-08-06 05:42] LABS: Albumin, Blood 1.7 g/dL (3.4-5.0); Anion Gap 5 mmol/L (6-16); Blood Urea Nitrogen 12 mg/dL (8-24); Bun/Creatinine Ratio 27.9 (12.0-20.0); CO2, Blood 25 mmol/L (21-32); Calcium, Blood 6.9 mg/dL (8.5-10.1); Chloride, Blood 108 mmol/L (98-108); Creatinine, Blood 0.43 mg/dL (0.40-1.00); Glomerular Filtration Rate >60 (60-); Glucose, Blood 110 mg/dL (70-99); Phosphorus, Blood 1.7 mg/dL (2.5-4.9); Potassium, Blood 3.3 mmol/L (3.5-5.5); Sodium, Blood 138 mmol/L (136-145)
--- NOTE | 2021-08-06 06:42 | NUR ---
PT with stage 2 lung cancer continues to have weakness & decreased adls mobility SP chemo radiation & immunotherapy. PT has 200 mg po seroquel & according to PT she should be on 3oo mg Q hs. DR Hernandez updated on PT requested & gives order for cancer tx
--- NOTE | 2021-08-06 18:27 | NUR ---
SHIFT SUMMARY; PATIENT WAITING FOR PLACEMENT AT SNF FACILITY. INSURANCE AUTH HAS BEEN ASKED FOR. WAITING FOR CARE MANAGEMENT DIRECTION OF CARE. KARIN STAYS IN BED MOST OF DAY. SHE SAYS "I FEEL WEAK TODAY AND DON'T WANT TO GET IN CHAIR TODAY" NICK IS ENCOURAGED TO GET IN RECLINER TODAY. PATIENT TAKES MEDICATIONS WHOLE WITH H20. WITHOUT DIFF. VITAL SIGNS WNL. NO SKIN ISSUES. APPETITE GOOD AND DRINKING WATER THROUGHOUT THE DAY. WILL REMAIN AVAILABLE FOR THIS PATIENT FOR ANY NURSING WANTS OR NEEDS.
--- NOTE | 2021-08-07 03:56 | NUR ---
SHIFT SUMMARY NO ACUTE CHANGES TO REPORT THIS SHIFT, PT HAS RESTED MOST OF THE NIGHT. VITALS ARE STABLE. PT A/OX4, PLESANT AND COOPERATIVE WITH CARE. BED IN LOWEST POSITION, CALL LIGHT WITHIN REACH.
[2021-08-07 05:39] LABS: Hemoglobin 7.5 g/dL (11.5-16.0); Mean Corpuscular HGB 31.8 pg (26.0-34.0); Mean Corpuscular HGB Conc 32.6 g/dL (31.5-36.5); Mean Corpuscular Volume 98 fL (80-100); Mean Platelet Volume 8.9 fL (9.1-12.4); Platelet Count 51 K/mm3 (150-400); RDW Coefficient Variation 17.3 % (11.7-14.2); RDW Standard Deviation 61.2 fL (35.1-46.3); Red Blood Cell Count 2.36 M/mm3 (3.80-5.20); White Blood Cell Count 3.62 K/mm3 (4.00-11.30)
[2021-08-07 06:19] LABS: Albumin, Blood 1.8 g/dL (3.4-5.0); Anion Gap 7 mmol/L (6-16); Blood Urea Nitrogen 10 mg/dL (8-24); Bun/Creatinine Ratio 24.2 (12.0-20.0); CO2, Blood 24 mmol/L (21-32); Calcium, Blood 7.5 mg/dL (8.5-10.1); Chloride, Blood 108 mmol/L (98-108); Creatinine, Blood 0.41 mg/dL (0.40-1.00); Glomerular Filtration Rate >60 (60-); Glucose, Blood 109 mg/dL (70-99); Phosphorus, Blood 1.9 mg/dL (2.5-4.9); Potassium, Blood 4.1 mmol/L (3.5-5.5); Sodium, Blood 139 mmol/L (136-145)
[2021-08-07 06:39] LABS: BAND PERCENT MAN 23 % (0-8); BASOPHILS PERCENT MAN 0 % (0-2); EOSINOPHILS PERCENT MAN 0 % (0-6); LYMPHOCYTES ABSOLUTE MAN 0.21 K/mm3 (0.84-5.20); LYMPHOCYTES PERCENT MAN 6 % (21-46); METAMYELOCYTE ABSOLUTE MAN 0.03 K/mm3 (0.00-0.00); METAMYELOCYTE PERCENT MAN 1 % (0-0); MONOCYTES ABSOLUTE MAN 0.21 K/mm3 (0.16-1.47); MONOCYTES PERCENT MAN 6 % (4-13); NEUTROPHILS ABSOLUTE MAN 3.14 K/mm3 (1.96-9.15); SEG NEUTROPHILS PERCENT MAN 64 % (41-73); TOTAL CELLS COUNTED 100
--- NOTE | 2021-08-07 16:03 | NUR ---
DAY SHIFT SUMMARY PLEASANT PT, QUIET, PT DIET CHANGED FROM CARDIAC TO REGULAR. PT STATES DIARRHEA IS LESSENING. ABLE TO GET UP TO CHAIR SIDE WITH 2 PERSON HEAVY ASSIST. PT AWAITING PLACEMENT IN SNF. CALL LIGHT WITHIN REACH.
--- NOTE | 2021-08-08 03:06 | NUR ---
SHIFT SUMMARY NO ACUTE CHANGES TO REPORT THIS SHIFT. PT HAS RESTED T/O THE NIGHT. SHE DENIES PAIN. ASSESSMENT REMAINS UNCHANGED. PT A/OX4, MAKES NEEDS KNOWN. PT STILL WAITING FOR PLACEMENT. BED IN LOWEST POSITION, CALL LIGHT WITHIN REACH.
[2021-08-08 06:08] LABS: BASOPHILS ABSOLUTE AUTO 0.01 K/mm3 (0.00-0.23); BASOPHILS PERCENT AUTO 0 % (0-2); EOSINOPHILS PERCENT AUTO 0 % (0-6); Hematocrit 22.8 % (33.0-51.0); Hemoglobin 7.4 g/dL (11.5-16.0); IMMATURE GRAN ABSOLUTE AUTO 0.12 K/mm3 (0.00-0.10); IMMATURE GRAN PERCENT AUTO 2 % (0-1); LYMPHOCYTES ABSOLUTE AUTO 0.59 K/mm3 (0.84-5.20); LYMPHOCYTES PERCENT AUTO 12 % (21-46); MONOCYTES ABSOLUTE AUTO 0.31 K/mm3 (0.16-1.47); MONOCYTES PERCENT AUTO 6 % (4-13); Mean Corpuscular HGB 31.9 pg (26.0-34.0); Mean Corpuscular HGB Conc 32.5 g/dL (31.5-36.5); Mean Corpuscular Volume 98 fL (80-100); Mean Platelet Volume 10.1 fL (9.1-12.4); NEUTROPHILS ABSOLUTE AUTO 4.12 K/mm3 (1.96-9.15); NEUTROPHILS PERCENT AUTO 80 % (41-73); NRBC ABSOLUTE 0.02 K/mm3 (0.00-0.02); NRBC Auto 0.4 /100 WBC (0.0-0.2); Platelet Count 55 K/mm3 (150-400); RDW Coefficient Variation 17.3 % (11.7-14.2); RDW Standard Deviation 61.7 fL (35.1-46.3); Red Blood Cell Count 2.32 M/mm3 (3.80-5.20); White Blood Cell Count 5.15 K/mm3 (4.00-11.30)
[2021-08-08 06:25] LABS: Albumin, Blood 1.8 g/dL (3.4-5.0); Anion Gap 5 mmol/L (6-16); Blood Urea Nitrogen 10 mg/dL (8-24); Bun/Creatinine Ratio 23.5 (12.0-20.0); CO2, Blood 26 mmol/L (21-32); Calcium, Blood 7.9 mg/dL (8.5-10.1); Chloride, Blood 108 mmol/L (98-108); Creatinine, Blood 0.43 mg/dL (0.40-1.00); Glomerular Filtration Rate >60 (60-); Glucose, Blood 78 mg/dL (70-99); Phosphorus, Blood 2.1 mg/dL (2.5-4.9); Sodium, Blood 139 mmol/L (136-145)
[2021-08-08 11:27] LABS: Influenza A, PCR NEGATIVE (NEGATIVE); Influenza B, PCR NEGATIVE (NEGATIVE); Resp Syncytial Virus, PCR NEGATIVE (NEGATIVE); SARS-Cov-2 (COVID-19) PCR, MMC NEGATIVE (NEGATIVE)
[2021-08-08] MEDS ORDERED: ACET325 PO (11:35)
[2021-08-08] MEDS ORDERED: BANATROL PLUS1 EAC1 PO (11:35)
[2021-08-08] MEDS ORDERED: FURO20 PO (11:36)
[2021-08-08] MEDS ORDERED: K-Phos Origina500 MG PO (11:36)
[2021-08-08] MEDS ORDERED: CHOLP PO (11:36)
[2021-08-08] MEDS ORDERED: PRED20 PO (11:36)
[2021-08-08] MEDS ORDERED: Vitamin D1000 UNI1 PO (11:37)
--- NOTE | 2021-08-08 17:35 | NUR ---
DISCHARGE PT DISCHARGED TO SNF @ 5895, REPORT GIVEN TO NURSE AND PAPERWORK FAXED OVER.
== END 2021-08-08 16:24 | DRG 393 ==
LOC: ER 11:42 → ERHOLD 15:40 → ICUE 15:40 → MEDS 07-27 09:22
PROVIDERS: Emergency Medicine; Internal Medicine; Internal Medicine Hematology & Oncology; ADMIT Family Medicine
PROC: 3E033XZ Introduction of Vasopressor into Peripheral Vein, Percutaneous Approach (ICD-10-PCS; principal; 2021-07-16)
DX: K52.1 Toxic gastroenteritis and colitis (principal); R57.1 Hypovolemic shock; E43 Unspecified severe protein-calorie malnutrition; E87.2 Acidosis; N17.9 Acute kidney failure, unspecified; Z66 Do not resuscitate; R65.10 Systemic inflammatory response syndrome (SIRS) of non-infectious origin without acute organ dysfunction; D61.818 Other pancytopenia; E87.0 Hyperosmolality and hypernatremia; E87.1 Hypo-osmolality and hyponatremia; Z20.822 Contact with and (suspected) exposure to COVID-19; E83.39 Other disorders of phosphorus metabolism; E86.0 Dehydration; E87.6 Hypokalemia; T45.1X5A Adverse effect of antineoplastic and immunosuppressive drugs, initial encounter; Z68.20 Body mass index [BMI] 20.0-20.9, adult; E83.42 Hypomagnesemia; I10 Essential (primary) hypertension; J43.9 Emphysema, unspecified; D69.6 Thrombocytopenia, unspecified; E83.51 Hypocalcemia; D63.8 Anemia in other chronic diseases classified elsewhere; R60.1 Generalized edema; R82.90 Unspecified abnormal findings in urine; E88.09 Other disorders of plasma-protein metabolism, not elsewhere classified; E55.9 Vitamin D deficiency, unspecified; F31.9 Bipolar disorder, unspecified; Z98.890 Other specified postprocedural states; Z85.118 Personal history of other malignant neoplasm of bronchus and lung; Z90.710 Acquired absence of both cervix and uterus; Z87.891 Personal history of nicotine dependence; Z92.21 Personal history of antineoplastic chemotherapy; Z92.3 Personal history of irradiation
CPT/HCPCS: 0241U; 36415; 36430; 74018; 74176; 80048; 80053; 80069; 81001; 82306; 82330; 82565; 82607; 82728; 82746; 82803; 82947; 83540; 83550; 83605; 83735; 84100; 84132; 84425; 84443; 84484; 85014; 85018; 85025; 85027; 86022; 86850; 86900; 86901; 86923; 87015; 87040; 87045; 87046; 87086; 87177; 87205; 87209; 87493; 87899; 93005; 93010; 94640; 94664; 94667; 94760; 94762; 96365; 96366; 96368; 96375; 97110; 97116; 97162; 97166; 97530; 97535; 99285-25; A9270; C1751; J0610; J0692; J0696; J1170; J1642; J1644; J1940; J2185; J2405; J2930; J3010; J3411; J3475; J3480; J7030; J7050; J7060; J7512; P9016; P9612